=== PATIENT | female | born 1970 | race Caucasian/White ===

== ENCOUNTER 2019-08-28 12:48 | Outpatient (CLI) | payer OTHER, SELFPAY ==
[2019-08-28 13:40] LABS: Base Excess ABG 0.6 mEq/l (+/-2.0); Fractional Inspired Oxygen 21 %; HCO3 ABG 26.2 mEq/l (22.0-26.0); Methemoglobin ABG 0.3 %THb (0-1.5); Oxygen Content ABG 13.1 %vol (16.0-22.0); Oxygen Saturation ABG 91.4 % (95.0-100.0); Oxyhemoglobin 88.3 % THb (90.0-100.0); PCO2 ABG 46.4 mmHg (35.0-45.0); PO2 ABG 63.2 mmHg (80.0-100.0); PO2 FiO2 Ratio Arterial Blood 3.01 %; Reduced Hemoglobin 9.4 %THb (0-5.0); Total Hemoglobin 10.5 g/dL (12.0-18.0)
[2019-08-28 13:41] LABS: Device ROOM AIR; Modified Allen's Test Pass; Site Drawn LEFT BRACHIAL
[2019-08-28 14:55] LABS: Basophils Percent Auto 0.6 % (0.2-1.2); Eosinophils Absolute Auto 0.1 K/mm3 (0-0.3); Eosinophils Percent Auto 1.3 % (0-4.4); Hematocrit 30.2 % (37.0-47.0); Hemoglobin 9.5 g/dL (12.0-15.0); Immature Granulocyte Absolute 0.02 K/mm3 (0.00-0.031); Immature Granulocyte Percent A 0.3 % (0-0.5); Lymphocytes Absolute Auto 2.84 K/mm3 (0.9-3.2); Lymphocytes Percent Auto 40.6 % (18.3-44.2); Mean Corpuscular HGB Conc 31.5 g/dl (32-36); Mean Corpuscular Hemoglobin 28.6 pg (26-34); Mean Platelet Volume 8.2 fl (7.4-10.4); Monocytes Absolute Auto 0.7 K/mm3 (0.1-0.6); Monocytes Percent Auto 10.3 % (2.6-8.5); Neutrophils Absolute Auto 3.3 K/mm3 (1.3-6.7); Neutrophils Percent Auto 46.9 % (45.5-73.1); Platelet Count Result 371 k/mm3 (150-375); Red Blood Count 3.32 M/mm3 (4.2-5.4)
[2019-08-28 15:03] LABS: Alanine Aminotransferase 17 U/L (4-35); Albumin Level 4.2 g/dL (3.5-5.1); Alkaline Phosphatase 77 U/L (38-126); Aspartate Amino Transferase 26 U/L (14-36); Bilirubin,Total 0.2 mg/dL (0.2-1.3); Blood Urea Nitrogen 11 mg/dL (7-17); Calcium 8.7 mg/dL (8.4-10.2); Carbon Dioxide 28 mmol/L (22-30); Chloride 100 mmol/L (98-107); Cholesterol 148 mg/dL (0-200); Estimated Glomerular Filt Rate > 60; Glucose 96 mg/dL (65-105); HDL Direct 48 mg/dL; Potassium 3.8 mmol/L (3.4-5.0); Sodium 136 mmol/L (137-145); Triglycerides 171 mg/dL (<150)
[2019-08-28 15:04] LABS: Add Urine Microscopic? YES; Appearance Urine Cloudy (Clear); Bacteria Urine Trace /hpf; Bilirubin Urine Negative (Negative); Blood Urine 1+ (Negative); Color Urine Yellow (Yellow); Glucose Urine UA Negative (Negative); Ketones Urine Negative (Negative); Leukocyte Esterase Ur Negative LEU/UL (NEGATIVE); Mucus Urine Rare /lpf; Nitrate Urine Negative (Negative); Protein Urine Negative (Negative); RBC Urine 0-2 /hpf (0-2); Specific Grav Ur 1.009 (1.001-1.035); Squamous Epithelial Cell Urine Many /hpf (Few); Urobilinogen Urine Negative mg/dL (<2.0)
[2019-08-28 15:14] LABS: LDL Cholesterol Direct 80 mg/dL
--- NOTE | 2019-09-13 12:59 | WPDPFTINT ---
PFT Interpretation PFT Interpretation: DOS: 08/28/2019 REQUESTING: Kajal Hernandez MD REASON FOR TESTING: shortness of breath, right lung collapse, oxygen use PULMONARY FUNCTION TESTS Results appear to be reproducible. Spirometry: Normal FEV1 89% 2.28 L. normal FVC 98%. Decreased FEV 1% 69%. Low FEF 25-75, 41% predicted. After bronchodilator the small airways increased by 41%. Lung volumes: Total lung capacity normal 102%. Normal RV 105%. Increased airway resistance 207%. Diffusion: DLCO 40% extremely reduced. Flow volume loop: Mild scooping of the expiratory limb IMPRESSION: This test shows a small airways pattern with good response to bronchodilator, increased airway resistance and severe diffusion impairment. The small airways pattern can be seen in asthma. The decrease in diffusion is the most significant finding, and it is out of proportion to all other findings. Isolated decrease in DLCO can be seen in anemia, chronic recurrent pulmonary emboli, early interstitial lung disease, and pulmonary vascular diseases including pulmonary arterial hypertension, pulmonary vascular disease involving rheumatologic diseases and vasculitides. Clinical correlation is recommended. ARTERIAL BLOOD GAS: pH 7.37, pCO2 46.4 mildly elevated, PO2 63.2, HCO3 26.2, saturation 91.4%; hemoglobin 10.5 g/dL. carboxyhemoglobin 2.0, oxyhemoglobin 88.3%. This was drawn on room air from the left brachial artery. INTERPRETATION: Mild respiratory acidosis with metabolic compensation, mild hypoxemia. Zeenat Flores MD
--- NOTE | 2019-09-13 13:20 | WPDSIXMINUTE ---
Six Minute Walk Six Minute Walk: DOS: 08/28/2019 REQUESTING : Dr. Hernandez REASON FOR TESTING: Shortness of breath with exertion SIX MINUTE WALK This test was conducted per ATS standards. the patient perform the test on room air using her ownl wheeled walker. Initial saturation was 94% and heart rate was 78. The patient walked for 6 minutes without stopping. Saturation at the 3 minutes clare was 85% on room air. Saturation at the end of the test was 92% and the pulse was 71. Distance walked was 925 ft / 281 meters. IMPRESSION: This study shows desaturation to 85% which indicates that the patient may qualify for O2 with exertion. Recommend Home O2 evaluation to determine amount. Zeenat Flores MD
== END 2019-08-28 12:49 | disposition home or self-care (01) ==
PROVIDERS: PCP Student in an Organized Health Care Education/Training Program
DX: R06.02 Shortness of breath (principal); E87.2 Acidosis; R09.02 Hypoxemia
CPT/HCPCS: 36415; 36600; 80053; 80061; 81001; 82375; 82805; 83050; 85025; 94060; 94726; 94729

== ENCOUNTER 2020-02-14 17:44 | Outpatient (CLI) | payer OTHER, SELFPAY ==
--- NOTE | ~2020-02-14 | MM_ITS ---
EXAMINATION: MM screening vika BI w jonathan HISTORY: Screening mammogram, family history of breast cancer in her mother. TECHNIQUE: Craniocaudal and mediolateral oblique 3-D tomosynthesis images were obtained and synthetic 2-D images were generated. CAD analysis was submitted and interpreted. COMPARISON: None, baseline BREAST PARENCHYMAL COMPOSITION: The breasts are heterogeneously dense, which may obscure small masses . FINDINGS: RIGHT BREAST: There is no evidence of suspicious mass, calcification, or architectural distortion to suggest malignancy. LEFT BREAST: An asymmetry is present in the anterior third of the inner breast 3.5 cm from the nipple on the craniocaudal view. IMPRESSION: 1. Left breast asymmetry on the craniocaudal view. 2. Additional mammographic views and possible breast ultrasound are recommended to evaluate for malig lexi and establish a baseline given that this is the first mammographic examination. BI-RADS Category 0: Incomplete: Needs additional imaging evaluation. Reviewed, dictated and finalized at location A. IMPRESSION: 1. Left breast asymmetry on the craniocaudal view. 2. Additional mammographic views and possible breast ultrasound are recommended to evaluate for malignancy and establish a baseline given that this is the fir st mammographic examination. BI-RADS Category 0: Incomplete: Needs additional imaging evaluation.
== END 2020-02-14 17:45 | disposition home or self-care (01) ==
PROVIDERS: PCP Student in an Organized Health Care Education/Training Program; Visit Provider Student in an Organized Health Care Education/Training Program
DX: Z12.31 Encounter for screening mammogram for malignant neoplasm of breast (principal); R92.8 Other abnormal and inconclusive findings on diagnostic imaging of breast
CPT/HCPCS: 77063; 77067

== ENCOUNTER 2022-03-09 10:24 | Inpatient (IN) | payer MEDICARE, MEDICAID, SELFPAY ==
[2022-03-09] VITALS (18 sets, daily range): BP systolic 96–122; BP diastolic 49–69; PULSE 71–87; RESP 14–20; TEMP 36.1–36.3; O2SAT 89–100; BMI 36.6
--- NOTE | ~2022-03-09 | XR_ITS ---
XR chest 1V portable 03/09/2022 11:16 Indication: Shortness of breath Procedure: AP portable chest Comparison: 04/26/2028 Findings: As right upper lobe airspace disease, compatible with pneumonia. There is left basilar atel ectasis/scarring, unchanged. Heart size normal. No pleural effusion or pneumothorax. No acute osseous abnormality. Impression: 1: Right upper lobe airspace disease, compatible with pneumonia. Reviewed, dictated and finalized at location A. Impression: 1: Right upper lobe airspace disease, compatible with pneumonia.
--- NOTE | ~2022-03-09 | XR_ITS ---
XR chest 1V portable 03/11/2022 14:04 Indication: Shortness of breath. Chest pressure. Procedure: AP portable chest Comparison: 03/09/2022 Findings: Patchy bilateral airspace disease is present with improving right upper lobe airspace conso lidation. No pleural effusion or pneumothorax. Heart size normal. No acute osseous abnormality. Impression: 1: Improving patchy bilateral airspace disease, consistent with pneumonia. Reviewed, dictated and finalized at location A. Impression: 1: Improving patchy bilateral airspace disease, consistent with pneumonia.
--- NOTE | 2022-03-09 10:39 | ECG_ITS ---
Measurements Intervals [place] Rate: 82 P: 44 W[place]: 151 QRS: 35 QRSD: 100 T: 55 QT: 365 QTc: 427 Interpretive Statements SINUS RHYTHM NONSPECIFIC T-WAVE ABNORMALITY- ANTERIOR LEADS BORDERLINE ECG COMPARED TO ECG 10/14/2018 23:20:51 HEART RATE HAS INCREASED Electronically Signed On 03-09-2022 12:18:52 CDT by Julius Willis D.O.
[2022-03-09 10:53] LABS: Basophils Percent Auto 0.2 % (0.2-1.2); Eosinophils Absolute Auto 0.1 K/mm3 (0-0.3); Eosinophils Percent Auto 0.6 % (0-4.4); Hematocrit 33.7 % (37.0-47.0); Hemoglobin 10.7 g/dL (12.0-15.0); Immature Granulocyte Absolute 0.03 K/mm3 (0.00-0.031); Immature Granulocyte Percent A 0.4 % (0-0.5); Lymphocytes Absolute Auto 1.18 K/mm3 (0.9-3.2); Mean Corpuscular HGB Conc 31.8 g/dl (32-36); Mean Corpuscular Hemoglobin 28.2 pg (26-34); Mean Corpuscular Volume 88.9 fl (80-100); Mean Platelet Volume 8.5 fl (7.4-10.4); Monocytes Absolute Auto 0.6 K/mm3 (0.1-0.6); Monocytes Percent Auto 7.3 % (2.6-8.5); Neutrophils Absolute Auto 6.6 K/mm3 (1.3-6.7); Neutrophils Percent Auto 77.5 % (45.5-73.1); Platelet Count Result 336 k/mm3 (150-375); Red Blood Count 3.79 M/mm3 (4.2-5.4); Red Cell Distribution Width 14.9 % (11.5-14.5); White Blood Count 8.5 K/mm3 (4.5-10.0)
[2022-03-09 11:04] LABS: Prothrombin Time 12.9 Seconds (11.1-14.7)
[2022-03-09 11:10] LABS: Alanine Aminotransferase 29 U/L (6-35); Albumin Level 4.2 g/dL (3.5-5.1); Alkaline Phosphatase 101 U/L (38-126); Anion Gap 12 mmol/L (8-16); Aspartate Amino Transferase 34 U/L (14-36); Bilirubin,Total 0.4 mg/dL (0.2-1.3); Blood Urea Nitrogen 11 mg/dL (7-17); Carbon Dioxide 25 mmol/L (22-30); Chloride 102 mmol/L (98-107); Estimated CRCL calculation 95 ml/min; Estimated Glomerular Filt Rate > 60; Glucose 137 mg/dL (65-110); Sodium 139 mmol/L (137-145)
--- NOTE | 2022-03-09 11:55 | ED.SOB ---
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 Patient denies any nausea, vomiting, diarrhea, constipation or back pain. Patient's daughter had COVID 1 week ago, patient is fully vaccinated for COVID, did not get the booster dose yet, history of hypertension, hyperlipidemia, COPD, hypothyroidism, coronary stents. Currently patient on Xarelto and Plavix. Normally she is not on oxygen. Related Data Allergies Allergy/AdvReac Type Severity Reaction Status Date / Time No Known Allergies Allergy Unverified 04/26/18 14:45 Review of Systems Review of Systems: All systems reviewed & are unremarkable except as noted in HPI and below Exam Narrative: General appearance: Well-developed, well-nourished Skin: Normal color Head: Normocephalic, nontraumatic Eyes: Clear conjunctiva ENT: Oropharynx normal, ears normal, nose normal Neck: Supple, nontender Chest and respiratory: Airway patent, no respiratory distress, no accessory muscle use Heart: Regular rate/rhythm Abdomen: Soft, nontender, no organomegaly, quiet bowel sounds Vascular: Normal peripheral pulses, normal capillary refill. Musculoskeletal: Normal range of motion, nontender back Neurologic: Alert and oriented ?3, HO[place] is normal as tested, no gross motor deficit Course Vital Signs Vital signs: Vital Signs Temperature 36.3 C L 03/09/22 10:33 Pulse Rate 84 03/09/22 10:33 Respiratory Rate 14 03/09/22 10:33 Blood Pressure 122/69 03/09/22 10:33 Pulse Oximetry 95 03/09/22 10:33 Temperature 36.3 C L 03/09/22 10:33 Pulse Rate 75 03/09/22 12:38 Respiratory Rate 18 03/09/22 12:38 Blood Pressure 105/59 L 03/09/22 12:38 Pulse Oximetry 98 03/09/22 12:38 Oxygen Delivery Nasal Cannula 03/09/22 11:42 Oxygen Flow Rate 2 03/09/22 11:42 MDM - SOB/Dyspnea Lab Data Result diagrams: 03/09/22 10:48 03/09/22 10:48 Labs: Lab Results 03/09/22 03/09/22 03/09/22 Range/Units 10:48 10:48 10:48 WBC 8.5 (4.5-10.0) K/mm3 RBC 3.79 L (4.2-5.4) M/mm3 Hgb 10.7 L (12.0-15.0) g/dL Hct 33.7 L (37.0-47.0) % MCV 88.9 (80-100) fl MCH 28.2 (26-34) pg MCHC 31.8 L (32-36) g/dl RDW 14.9 H (11.5-14.5) % Plt Count 336 (150-375) k/mm3 MPV 8.5 (7.4-10.4) fl Immature Gran % (Auto) 0.4 (0-0.5) % Neut % (Auto) 77.5 H (45.5-73.1) % Lymph % (Auto) 14.0 L (18.3-44.2) % [place] % (Auto) 7.3 (2.6-8.5) % Eos % (Auto) 0.6 (0-4.4) % Baso % (Auto) 0.2 (0.2-1.2) % Lymph # (Auto) 1.18 (0.9-3.2) K/mm3 [place] # (Auto) 0.6 (0.1-0.6) K/mm3 Eos # (Auto) 0.1 (0-0.3) K/mm3 Baso # (Auto) 0.0 (0.0-0.1) K/mm3 Abs Immat Gran (auto) 0.03 (0.00-0.031) K/mm3 Absolute Neuts (auto) 6.6 (1.3-6.7) K/mm3 Absolute Nucleated RBC 0.0 (0.0-0.012) K/mm3 Nucleated RBC % 0.0 (0.0-0.2) % PT 12.9 (11.1-14.7) Seconds INR 1.0 APTT D-Dimer (<0.48) ug/mL Sodium 139 (137-145) mmol/L Potassium 4.0 (3.4-5.0) mmol/L Chloride 102 (98-107) mmol/L Carbon Dioxide 25 (22-30) mmol/L Anion Gap 12 (8-16) mmol/L BUN 11 (7-17) mg/dL Creatinine 0.70 (0.7-1.0) mg/dL Estim Creat Clear Calc 95 ml/min Estimated GFR > 60 (59 - ) Glucose 137 H (65
[2022-03-09 12:27] LABS: Alveolar/Arterial O2 Gradient 59.6 mmHg; Base Excess ABG 1.8 mEq/l (+/-2.0); Device NASAL CANNULA; Fractional Inspired Oxygen 28 %; HCO3 ABG 26.8 mEq/l (22.0-26.0); Modified Allen's Test Pass; Oxygen Content ABG 15.1 %vol (16.0-22.0); Oxygen Saturation ABG 96.7 % (95.0-100.0); Oxyhemoglobin 95.3 % THb (90.0-100.0); PCO2 ABG 43.9 mmHg (35.0-45.0); PO2 ABG 88.2 mmHg (80.0-100.0); PO2 FiO2 Ratio Arterial Blood 3.15 %; Site Drawn LEFT RADIAL; Total Hemoglobin 11.2 g/dL (12.0-18.0); pH ABG 7.404 (7.350-7.450)
[2022-03-09 13:06] LABS: SARS-CoV-2 RNA PCR Negative
[2022-03-09 13:20] LABS: Lactic Acid Reflex 1.8 mmol/L (0.7-2.0)
[2022-03-09 13:22] LABS: D Dimer < 0.27 ug/mL (<0.48)
[2022-03-09 13:27] LABS: CRP 1.9 mg/dL (<1.0)
[2022-03-09 13:41] LABS: Partial Thromboplastin Time 27.7 SECONDS (22.3-36.8)
[2022-03-09] MEDS: ALBUTEROL SULFATE NEB 2.5 MG/3 ML INH 5 MG INHALATION ×2 (14:50→20:28)
[2022-03-09 14:55] LABS: INR 1.1; Prothrombin Time 13.3 Seconds (11.1-14.7)
--- NOTE | 2022-03-09 22:00 | PM.IMHP ---
H&P: HPI History of Present Illness Date/Time: 03/09/22 22:00 Chief Complaint: Shortness of breath. Narrative: This is a 51-year-old female with chronic respiratory failure on home oxygen, chronic obstructive pulmonary disease, coronary artery disease, chronic anticoagulation due to history of pulmonary embolism, and hypertension who presented to the ED from home for evaluation of shortness of breath. She felt fine when she went to bed last night however when she got up this morning she was feeling unwell with sinus congestion, chills, sweats, dry cough, and sinus congestion. Her daughter had COVID last week and she was concerned that perhaps she was coming down with COVID and she came in for evaluation. SARS-CoV-2 by PCR was negative. Chest x-ray showed right upper lobe airspace disease compatible with pneumonia and she is being admitted in this setting. At the time my evaluation she is asleep with stable SpO2 on her usual 2 liters nasal cannula. She denies headache, sore throat, chest pain, pleuritic pain, nausea, vomiting, and diarrhea. Review of Systems Review of Systems: Twelve systems were reviewed and are negative except for as per HPI. ON LICENSE OF [facility] Past Medical History Medical History (Updated 03/09/22 @ 23:16 by Elena Figueredo PA-C) Chronic back pain Chronic obstructive pulmonary disease Chronic prescription opiate use Chronic respiratory failure with hypoxia, on home O2 therapy Coronary artery disease Depression with anxiety Gastroesophageal reflux disease Hypertension Hypothyroidism Surgical History Surgical History (Updated 03/09/22 @ 23:10 by Elena Figueredo PA-C) History of cardiac catheterization History of coronary artery stent placement History of lumbar surgery Family History Family History (Updated 03/09/22 @ 23:10 by Elena Figueredo PA-C) Other Heart disease Hypertension Social History Social History (Updated 03/09/22 @ 23:11 by Elena Figueredo PA-C) Social History: Surrogate medical decision maker: Spenser Carrera, significant other. Code status: Full code. Smoking packs per day: 3.5 Smoking cigarettes per day: 70.0 Years smoked: 20 Smoking pack-years: 70.00 Smoking status: Former smoker Tobacco type: cigarettes Second hand tobacco smoke exposure: No Alcohol intake: former Substance use: never Spiritual care concerns: No Meds Home Medications and Allergies Home Medications Medication Instructions Recorded Confirmed Type amlodipine 2.5 mg tablet 25 mg PO DAILY 03/09/22 03/09/22 History atorvastatin 80 mg tablet 80 mg PO DAILY 03/09/22 03/09/22 History buspirone 15 mg tablet 15 mg PO BID 03/09/22 03/09/22 History clopidogrel 75 mg tablet 75 mg PO HS 03/09/22 03/09/22 History diazepam 5 mg tablet 5 - 10 mg PO DAILY PRN Anxiety 03/09/22 03/09/22 History famotidine 20 mg tablet 20 mg PO BID 03/09/22 03/09/22 History furosemide 20 mg tablet 20 mg PO DAILY PRN Dyspnea 03/09/22 03/09/22 History gabapentin 300 mg capsule 300 mg PO TID 03/09/22 03/09/22 History isosorbide mononitrate 30 mg 30 mg PO DAILY 03/09/22 03/09/22 History tablet,extended release 24 hr levothyroxine 25 mcg tablet 25 mcg PO QAM 03/09/22 03/09/22 History metoprolol tartrate 25 mg tablet 25 mg PO Q12H 03/09/22 03/09/22 History montelukast 10 mg tablet 10 mg PO DAILY 03/09/22 03/09/22 History nitroglycerin 0.3 mg sublingual See Rx Instructions .Route 03/09/22 03/09/22 History tablet .COMPLEX PRN Angina oxycodone-acetaminophen 10 mg-325 1 tablet PO Q6H PRN Pain 03/09/22 03/09/22 History mg tablet pantoprazole 40 mg tablet,delayed 40 mg PO DAILY 03/09/22 03/09/22 History release rivaroxaban 20 mg tablet (Xarelto) 20 mg PO HS 03/09/22 03/09/22 History venlafaxine 150 mg 150 mg PO DAILY 03/09/22 03/09/22 History capsule,extended release 24 hr venlafaxine 75 mg capsule,extended 75 mg PO DAILY 03/09/22 03/09/22 History release 24 hr Allergies Allergy/AdvReac Type Se
[2022-03-09] MEDS: SODIUM CHLORIDE 0.9% IV 1,000 ML 100 ML IV CONT (23:49)
[2022-03-09] MEDS: oxyCODONE/ACETAMINOPHEN (*CRX) 10-325 MG TABLET 1 TAB PO (23:49)
[2022-03-10] VITALS (13 sets, daily range): BP systolic 102–125; BP diastolic 52–75; PULSE 77–100; RESP 16–20; TEMP 35.8–36.6; O2SAT 91–97
[2022-03-10] MEDS: GABAPENTIN 300 MG CAPSULE PO ×4 (00:19→16:08)
[2022-03-10] MEDS: RIVAROXABAN 20 MG TABLET PO ×2 (00:20→21:20)
[2022-03-10] MEDS: METOPROLOL TARTRATE 25 MG TABLET PO ×3 (00:20→21:20)
[2022-03-10] MEDS: CLOPIDOGREL BISULFATE 75 MG TABLET PO ×2 (00:20→21:19)
--- NOTE | 2022-03-10 02:18 | PCRCNOTE ---
PT REFUSING 0200 UPD ON 03/10. PT INFORMED TO CALL IF IN NEED OF ONE. RN INFORMED OF REFUSAL.
[2022-03-10] MEDS: LEVOTHYROXINE SODIUM 25 MCG TABLET PO (06:03)
[2022-03-10] MEDS: oxyCODONE/ACETAMINOPHEN (*CRX) 10-325 MG TABLET 1 TAB PO ×3 (06:03→17:45)
[2022-03-10 06:50] LABS: Hematocrit 29.5 % (37.0-47.0); Hemoglobin 9.1 g/dL (12.0-15.0); Mean Corpuscular HGB Conc 30.8 g/dl (32-36); Mean Corpuscular Hemoglobin 27.9 pg (26-34); Mean Corpuscular Volume 90.5 fl (80-100); Mean Platelet Volume 8.8 fl (7.4-10.4); Platelet Count Result 304 k/mm3 (150-375); Red Blood Count 3.26 M/mm3 (4.2-5.4); Red Cell Distribution Width 15.2 % (11.5-14.5); White Blood Count 6.4 K/mm3 (4.5-10.0)
[2022-03-10 07:11] LABS: Alanine Aminotransferase 25 U/L (6-35); Albumin Level 3.6 g/dL (3.5-5.1); Alkaline Phosphatase 88 U/L (38-126); Anion Gap 9 mmol/L (8-16); Aspartate Amino Transferase 27 U/L (14-36); Bilirubin,Total 0.4 mg/dL (0.2-1.3); Blood Urea Nitrogen 11 mg/dL (7-17); Calcium 8.6 mg/dL (8.4-10.2); Carbon Dioxide 28 mmol/L (22-30); Chloride 101 mmol/L (98-107); Estimated CRCL calculation 94 ml/min; Estimated Glomerular Filt Rate > 60; Glucose 121 mg/dL (65-110); Lactate Dehydrogenase 152 U/L (120-246); Magnesium 1.8 mg/dL (1.6-2.3); Potassium 4.1 mmol/L (3.4-5.0); Sodium 138 mmol/L (137-145)
[2022-03-10 07:17] LABS: CRP 12.5 mg/dL (<1.0)
[2022-03-10] MEDS: ALBUTEROL SULFATE NEB 2.5 MG/3 ML INH 5 MG INHALATION ×2 (08:15→15:15)
[2022-03-10] MEDS: MONTELUKAST SODIUM 10 MG TABLET PO (08:55)
[2022-03-10] MEDS: VENLAFAXINE HCL XR 75 MG CAP.ER.24H 225 MG PO (08:55)
[2022-03-10] MEDS: FUROSEMIDE 20 MG TABLET PO (08:56)
[2022-03-10] MEDS: FAMOTIDINE 20 MG TABLET PO ×2 (08:56→16:08)
[2022-03-10] MEDS: PANTOPRAZOLE 40 MG TABLET PO (08:56)
[2022-03-10] MEDS: ATORVASTATIN 40 MG TABLET 80 MG PO (08:56)
[2022-03-10] MEDS: busPIRone HCL 5 MG TABLET 15 MG PO ×2 (08:57→16:08)
[2022-03-10] MEDS: ACETAMINOPHEN 325 MG TABLET 650 MG PO (11:12)
--- NOTE | 2022-03-10 11:15 | PM.IMPN ---
Progress Note: A&P Assessment and Plan (1) Right upper lobe pneumonia: Code(s): J18.9 - Pneumonia, unspecified organism Status: Acute Assessment and Plan: Chest xray Right upper lobe airspace disease, compatible with pneumonia. Covid negative WBC 6.4 Continue ceftriaxone and azithromycin Sputum ordered Legionella and pneumococcal ordered Trend symptoms At baseline O2 requirements (2) Chronic respiratory failure with hypoxia, on home O2 therapy: Code(s): J96.11 - Chronic respiratory failure with hypoxia; Z99.81 - Dependence on supplemental oxygen Status: Acute Assessment and Plan: She is at her home oxygen requirement. Trend respiratory status Wean oxygen to maintain saturation >90% . (3) Chronic obstructive pulmonary disease: Code(s): J44.9 - Chronic obstructive pulmonary disease, unspecified Status: Acute Assessment and Plan: No acute exacerbation. Nebs available if needed. (4) Chronic prescription opiate use: Code(s): Z79.891 - group home (current) use of opiate analgesic Status: Acute Assessment and Plan: Continue oxycodone q.6 hours as needed for pain. (5) Hypothyroidism: Code(s): E03.9 - Hypothyroidism, unspecified Status: Acute Assessment and Plan: Continue levothyroxine TSH 1.210 (6) Coronary artery disease: Code(s): I25.10 - Atherosclerotic heart disease of [place] coronary artery without angina pectoris Status: Acute Assessment and Plan: No acute issues. Continue clopidogrel, statin, and beta-placido. (7) Hypertension: Code(s): I10 - Essential (primary) hypertension Status: Acute Assessment and Plan: Current BP is 102/61 Blood pressures have been soft. Continue to hold Amlodipine and isosorbide for now. Continue to trend BP Adjust therapy as indicated Time Spent With Patient Time with patient: Greater than 35 minutes Subjective Date/time seen: 03/10/22 11:15 Interval history: 03/10/22 1115 Patient stated that she was having a little bit chest pain however it is mostly when she coughs, takes a deep breath. She also states that she has bilateral pain on the sides were her chest tubes were inserted when she had collapsed lung. She is also complaining of back pain which she does have for rods in her back and states that is probably normal. Her swelling in her legs and she does have a cough however is not productive. She does have a bit of a fever and states that she is having night sweats. She currently seems to be at her baseline. She denies any nausea, vomiting, diarrhea, constipation. 03/09/22? 22:00 This is a 51-year-old female with chronic respiratory failure on home oxygen, chronic obstructive pulmonary disease, coronary artery disease, chronic anticoagulation due to history of pulmonary embolism, and hypertension who presented to the ED from home for evaluation of shortness of breath. She felt fine when she went to bed last night however when she got up this morning she was feeling unwell with sinus congestion, chills, sweats, dry cough, and sinus congestion. Her daughter had COVID last week and she was concerned that perhaps she was coming down with COVID and she came in for evaluation. SARS-CoV-2 by PCR was negative. Chest x-ray showed right upper lobe airspace disease compatible with pneumonia and she is being admitted in this setting. At the time my evaluation she is asleep with stable SpO2 on her usual 2 liters nasal cannula. She denies headache, sore throat, chest pain, pleuritic pain, nausea, vomiting, and diarrhea. Review of Systems Review of Systems: All systems reviewed & are unremarkable except as noted in HPI and below Exam Const: General: cooperative, healthy appearing, no acute distress, well developed, alert and awake Nutritional Appearance: well nourished Orientation/
[2022-03-10] MEDS: FUROSEMIDE INJ 40 MG/4 ML VIAL IV PUSH (16:08)
--- NOTE | 2022-03-10 17:17 | PC.NURSE ---
Called Josue MILLER regarding +gram cocci in clusters, no new orders
[2022-03-10] MEDS: MORPHINE SULFATE (*CRX) 2 MG/ML INJ IV PUSH (22:12)
[2022-03-10] MEDS: diazePAM (*CRX) 5 MG TABLET PO (22:24)
[2022-03-11] MEDS: diphenhydrAMINE HCl CAP 25 MG CAPSULE PO (01:09)
[2022-03-11] MEDS: oxyCODONE/ACETAMINOPHEN (*CRX) 10-325 MG TABLET 1 TAB PO ×3 (01:09→15:48)
[2022-03-11 05:27] VITALS: BP 111/60; PULSE 76; RESP 20; TEMP 37.3; O2SAT 90
[2022-03-11] MEDS: LEVOTHYROXINE SODIUM 25 MCG TABLET PO (05:55)
[2022-03-11 08:00] VITALS: O2SAT 95
[2022-03-11] MEDS: VENLAFAXINE HCL XR 75 MG CAP.ER.24H 225 MG PO (08:47)
[2022-03-11 08:48] VITALS: PULSE 76
[2022-03-11] MEDS: PANTOPRAZOLE 40 MG TABLET PO (08:48)
[2022-03-11] MEDS: METOPROLOL TARTRATE 25 MG TABLET PO (08:48)
[2022-03-11] MEDS: FAMOTIDINE 20 MG TABLET PO (08:48)
[2022-03-11] MEDS: busPIRone HCL 5 MG TABLET 15 MG PO (08:48)
[2022-03-11] MEDS: GABAPENTIN 300 MG CAPSULE PO ×2 (08:48→12:42)
[2022-03-11] MEDS: ATORVASTATIN 40 MG TABLET 80 MG PO (08:49)
[2022-03-11] MEDS: MONTELUKAST SODIUM 10 MG TABLET PO (08:49)
[2022-03-11 09:17] LABS: Basophils Percent Auto 0.5 % (0.2-1.2); Eosinophils Absolute Auto 0.2 K/mm3 (0-0.3); Eosinophils Percent Auto 3.2 % (0-4.4); Hematocrit 34.7 % (37.0-47.0); Hemoglobin 10.6 g/dL (12.0-15.0); Immature Granulocyte Absolute 0.02 K/mm3 (0.00-0.031); Immature Granulocyte Percent A 0.4 % (0-0.5); Lymphocytes Absolute Auto 1.79 K/mm3 (0.9-3.2); Lymphocytes Percent Auto 31.6 % (18.3-44.2); Mean Corpuscular HGB Conc 30.5 g/dl (32-36); Mean Corpuscular Hemoglobin 28.8 pg (26-34); Mean Corpuscular Volume 94.3 fl (80-100); Mean Platelet Volume 8.6 fl (7.4-10.4); Monocytes Absolute Auto 0.6 K/mm3 (0.1-0.6); Monocytes Percent Auto 10.6 % (2.6-8.5); Neutrophils Absolute Auto 3.1 K/mm3 (1.3-6.7); Neutrophils Percent Auto 53.7 % (45.5-73.1); Platelet Count Result 330 k/mm3 (150-375); Red Blood Count 3.68 M/mm3 (4.2-5.4); Red Cell Distribution Width 15.2 % (11.5-14.5); White Blood Count 5.7 K/mm3 (4.5-10.0)
[2022-03-11 09:27] LABS: Alanine Aminotransferase 25 U/L (6-35); Albumin Level 4.2 g/dL (3.5-5.1); Alkaline Phosphatase 101 U/L (38-126); Anion Gap 11 mmol/L (8-16); Aspartate Amino Transferase 25 U/L (14-36); Bilirubin,Total 0.4 mg/dL (0.2-1.3); Blood Urea Nitrogen 9 mg/dL (7-17); Carbon Dioxide 27 mmol/L (22-30); Chloride 100 mmol/L (98-107); Estimated CRCL calculation 109 ml/min; Estimated Glomerular Filt Rate > 60; Glucose 125 mg/dL (65-110); Potassium 4.1 mmol/L (3.4-5.0); Sodium 138 mmol/L (137-145)
--- NOTE | 2022-03-11 09:30 | P.DS_ITS ---
DS: Admitting Diagnosis Discharge Date 03/11/22929 Admitting Diagnosis PNA, CHF, COPD DS: Discharge Diagnosis Discharge Diagnosis (1) Right upper lobe pneumonia: Code(s): J18.9 - Pneumonia, unspecified organism Status: Acute Assessment and Plan: * Chest xray Right upper lobe airspace disease, compatible with pneumonia. * Covid negative * WBC 6.4 * Continue ceftriaxone and azithromycin * Sputum ordered * Legionella and pneumococcal ordered * Trend symptoms * At baseline O2 requirements (2) Chronic respiratory failure with hypoxia, on home O2 therapy: Code(s): J96.11 - Chronic respiratory failure with hypoxia; Z99.81 - Dependence on supplemental oxygen Status: Acute Assessment and Plan: * She is at her home oxygen requirement. * Trend respiratory status * Wean oxygen to maintain saturation >90% (3) Chronic obstructive pulmonary disease: Code(s): J44.9 - Chronic obstructive pulmonary disease, unspecified Status: Acute Assessment and Plan: * No acute exacerbation. Nebs available if needed. (4) Chronic prescription opiate use: Code(s): Z79.891 - [facility] (current) use of opiate analgesic Status: Acute Assessment and Plan: * Continue oxycodone q.6 hours as needed for pain. (5) Hypothyroidism: Code(s): E03.9 - Hypothyroidism, unspecified Status: Acute Assessment and Plan: * Continue levothyroxine * TSH 1.210 (6) Coronary artery disease: Code(s): I25.10 - Atherosclerotic heart disease of [place] coronary artery without angina pectoris Status: Acute Assessment and Plan: * * No acute issues. Continue clopidogrel, statin, and beta-placido. (7) Hypertension: Code(s): I10 - Essential (primary) hypertension Status: Acute Assessment and Plan: * Current BP is 111/60 * Blood pressures have been soft. * Continue to hold Amlodipine and isosorbide for now. * Continue to trend BP * Adjust therapy as indicated DS: Summary Hospital Course Hospital Course: Patient is a 51-year-old female with past medical history of COPD, chronic respiratory failure on home O2, CAD, GERD, hypertension, hypothyroidism who presented to the ED with complaints of shortness of breath. Patient started to have congestion along with chills and sweats with dry cough. COVID test was negative chest x-ray showed right upper lobe airspace disease compatible with pneumonia. White blood cell count is stable at 5.7 today. Sputum culture did grow Gram-positive cocci however no growth any further. Legionella pneumococcal are still pending. Patient was started on IV antibiotics including ceftriaxone and azithromycin. Patient is also being and p.r.n. Lasix which he states has really been helping her breathe better and makes her feel better in general. She is currently stable for discharge including labs and vital signs. Blood cultures did show Gram-positive cocci in clusters growing in 1 bottle. However patient does not paint the picture of bacteremia and seems to have more of a contaminant. Will continue to follow culture results. Patient is stable for discharge and is ready to go today. Time spent discussing smoking cessation with patient: more than 10 minutes Status at Discharge Functional status at discharge: independent ambulation Overall status at discharge: shey
--- NOTE | 2022-03-11 09:30 | PM.DS ---
DS: Admitting Diagnosis Discharge Date 03/11/22929 Admitting Diagnosis PNA, CHF, COPD DS: Discharge Diagnosis Discharge Diagnosis (1) Right upper lobe pneumonia: Code(s): J18.9 - Pneumonia, unspecified organism Status: Acute Assessment and Plan: Chest xray Right upper lobe airspace disease, compatible with pneumonia. Covid negative WBC 6.4 Continue ceftriaxone and azithromycin Sputum ordered Legionella and pneumococcal ordered Trend symptoms At baseline O2 requirements (2) Chronic respiratory failure with hypoxia, on home O2 therapy: Code(s): J96.11 - Chronic respiratory failure with hypoxia; Z99.81 - Dependence on supplemental oxygen Status: Acute Assessment and Plan: She is at her home oxygen requirement. Trend respiratory status Wean oxygen to maintain saturation >90% (3) Chronic obstructive pulmonary disease: Code(s): J44.9 - Chronic obstructive pulmonary disease, unspecified Status: Acute Assessment and Plan: No acute exacerbation. Nebs available if needed. (4) Chronic prescription opiate use: Code(s): Z79.891 - long-term (current) use of opiate analgesic Status: Acute Assessment and Plan: Continue oxycodone q.6 hours as needed for pain. (5) Hypothyroidism: Code(s): E03.9 - Hypothyroidism, unspecified Status: Acute Assessment and Plan: Continue levothyroxine TSH 1.210 (6) Coronary artery disease: Code(s): I25.10 - Atherosclerotic heart disease of [place] coronary artery without angina pectoris Status: Acute Assessment and Plan: No acute issues. Continue clopidogrel, statin, and beta-placido. (7) Hypertension: Code(s): I10 - Essential (primary) hypertension Status: Acute Assessment and Plan: Current BP is 111/60 Blood pressures have been soft. Continue to hold Amlodipine and isosorbide for now. Continue to trend BP Adjust therapy as indicated DS: Summary Hospital Course Hospital Course: Patient is a 51-year-old female with past medical history of COPD, chronic respiratory failure on home O2, CAD, GERD, hypertension, hypothyroidism who presented to the ED with complaints of shortness of breath. Patient started to have congestion along with chills and sweats with dry cough. COVID test was negative chest x-ray showed right upper lobe airspace disease compatible with pneumonia. White blood cell count is stable at 5.7 today. Sputum culture did grow Gram-positive cocci however no growth any further. Legionella pneumococcal are still pending. Patient was started on IV antibiotics including ceftriaxone and azithromycin. Patient is also being and p.r.n. Lasix which he states has really been helping her breathe better and makes her feel better in general. She is currently stable for discharge including labs and vital signs. Blood cultures did show Gram-positive cocci in clusters growing in 1 bottle. However patient does not paint the picture of bacteremia and seems to have more of a contaminant. Will continue to follow culture results. Patient is stable for discharge and is ready to go today. Time spent discussing smoking cessation with patient: more than 10 minutes Status at Discharge Functional status at discharge: independent ambulation Overall status at discharge: patient is progressing back to baseline Time Spent with Patient Time attestation: Total time spent providing and/or coordinating discharge services: 36 minutes Time spent: Greater than 30 minutes Specific discharge activities: Diagnostic testing, chart review, developing a treatment plan, education, care coordination documentation, physical exam, result review Exam Const: General: cooperative, healthy appearing, no acute distress, well developed, alert and awake Nutritional Appearance: well nourished Orientation/con
[2022-03-11] MEDS: FUROSEMIDE INJ 40 MG/4 ML VIAL IV PUSH (11:42)
[2022-03-11 14:00] VITALS: BP 116/65; PULSE 79; RESP 16; TEMP 35.9; O2SAT 97
[2022-03-13 00:32] LABS: Pneumococcal Antigen Urine Not Detected (Not Detected)
[2022-03-13 03:10] LABS: Legionella pneumophila Ag Ur Not Detected (Not Detected)
[2022-03-15 14:28] LABS: Mycoplasma IgM Antibody Titer 52 U/mL (<770)
== END 2022-03-11 17:00 | disposition home or self-care (01) | DRG 194 ==
LOC: ANHED 13:31 → ANH3MEDSUR 14:30
PROVIDERS: Physician Assistant; Admitting Provider Family Medicine; Emergency Provider Emergency Medicine; PCP Student in an Organized Health Care Education/Training Program; Visit Provider Nurse Practitioner
DX: J18.9 Pneumonia, unspecified organism (principal); J96.11 Chronic respiratory failure with hypoxia; B96.89 Other specified bacterial agents as the cause of diseases classified elsewhere; Z20.822 Contact with and (suspected) exposure to COVID-19; E03.9 Hypothyroidism, unspecified; F32.A Depression, unspecified; F41.9 Anxiety disorder, unspecified; I25.10 Atherosclerotic heart disease of native coronary artery without angina pectoris; I10 Essential (primary) hypertension; K21.9 Gastro-esophageal reflux disease without esophagitis; J44.9 Chronic obstructive pulmonary disease, unspecified; G89.29 Other chronic pain; M54.9 Dorsalgia, unspecified; Z99.81 Dependence on supplemental oxygen; Z79.01 Long term (current) use of anticoagulants; Z79.02 Long term (current) use of antithrombotics/antiplatelets; Z86.711 Personal history of pulmonary embolism; Z95.5 Presence of coronary angioplasty implant and graft; Z87.891 Personal history of nicotine dependence; Z79.891 Long term (current) use of opiate analgesic
CPT/HCPCS: 36415; 36600; 71045; 80053; 82728; 82805; 83605; 83615; 83735; 84443; 85025; 85027; 85380; 85610; 85730; 86140; 86738; 87040; 87070; 87147; 87181; 87186; 87205; 87449; 87899; 93005; 94640; 96365; 96375; 99285; A9270; C9803; J0131; J0456; J0696; J1940; J2270; J7030; U0003; U0005

== ENCOUNTER 2022-06-25 11:07 | Emergency (ER) | payer MEDICARE, MEDICAID, SELFPAY ==
--- NOTE | ~2022-06-25 | XR_ITS ---
XR chest 2V DATE: 06/25/2022 11:51 INDICATION: Fever last night. Shortness of breath. History of pneumonia 2 months ago. TECHNIQUE: PA and lateral views COMPARISON: 03/11/2022 portable AP chest FINDINGS: Coronary stent and/or calcification. Heart size is normal. No pulmonary vascular congestion or pleural effusion or pneumothorax. No pulmonary infiltrate or consolidation. IMPRESSION: No active cardiopulmonary disease Reviewed, dictated and finalized at location B. TS WRITER
[2022-06-25 11:17] VITALS: BP 112/82; PULSE 84; RESP 18; TEMP 36.2; O2SAT 97
--- NOTE | 2022-06-25 11:23 | ECG_ITS ---
Measurements Intervals [place] Rate: 77 P: 35 [place]: 156 QRS: 34 QRSD: 99 T: 54 QT: 369 QTc: 419 Interpretive Statements SINUS RHYTHM NONSPECIFIC T-WAVE ABNORMALITY- ANTEROLAT/HIGH LAT LEADS BASELINE ARTIFACT- V3 BORDERLINE ECG COMPARED TO ECG 03/09/2022 10:45:24 NO SIGNIFICANT CHANGES Electronically Signed On 06-25-2022 12:03:16 HVAC RESIDENTIAL SERVICE TECHNICIAN by Julius Willis D.O.
[2022-06-25 11:39] LABS: Basophils Percent Auto 0.6 % (0.2-1.2); Eosinophils Absolute Auto 0.1 K/mm3 (0-0.3); Eosinophils Percent Auto 1.2 % (0-4.4); Hematocrit 34.2 % (37.0-47.0); Hemoglobin 11.3 g/dL (12.0-15.0); Immature Granulocyte Absolute 0.02 K/mm3 (0.00-0.031); Immature Granulocyte Percent A 0.3 % (0-0.5); Lymphocytes Absolute Auto 1.52 K/mm3 (0.9-3.2); Mean Corpuscular Hemoglobin 29.1 pg (26-34); Mean Corpuscular Volume 88.1 fl (80-100); Mean Platelet Volume 8.5 fl (7.4-10.4); Monocytes Absolute Auto 0.9 K/mm3 (0.1-0.6); Monocytes Percent Auto 12.6 % (2.6-8.5); Neutrophils Absolute Auto 4.4 K/mm3 (1.3-6.7); Neutrophils Percent Auto 63.3 % (45.5-73.1); Platelet Count Result 321 k/mm3 (150-375); Red Blood Count 3.88 M/mm3 (4.2-5.4); Red Cell Distribution Width 15.7 % (11.5-14.5); White Blood Count 6.9 K/mm3 (4.5-10.0)
[2022-06-25 11:49] LABS: Alanine Aminotransferase 33 U/L (6-35); Albumin Level 4.5 g/dL (3.5-5.1); Alkaline Phosphatase 103 U/L (38-126); Anion Gap 6 mmol/L (8-16); Aspartate Amino Transferase 37 U/L (14-36); Bilirubin,Total 0.5 mg/dL (0.2-1.3); Blood Urea Nitrogen 7 mg/dL (7-17); Calcium 8.7 mg/dL (8.4-10.2); Carbon Dioxide 31 mmol/L (22-30); Chloride 95 mmol/L (98-107); Estimated CRCL calculation 89 ml/min; Estimated Glomerular Filt Rate > 60; Glucose 124 mg/dL (65-110); Potassium 3.4 mmol/L (3.4-5.0); Sodium 132 mmol/L (137-145)
[2022-06-25 12:15] LABS: Influenza A QL RT-PCR Negative (Negative); Influenza B QL RT-PCR Negative (Negative); SARS-CoV-2 RNA PCR Negative
== END 2022-06-25 13:59 | disposition left against medical advice (07) ==
PROVIDERS: Emergency Provider Emergency Medicine; PCP Student in an Organized Health Care Education/Training Program
DX: R06.02 Shortness of breath (principal)
CPT/HCPCS: 36415; 71046; 80053; 85025; 87636; 93005; 99199

== ENCOUNTER 2022-08-23 09:56 | Emergency (ER) | payer MEDICARE, MEDICAID, SELFPAY ==
--- NOTE | ~2022-08-23 | XR_ITS ---
EXAMINATION: XR wrist RT min 3V DATE: 08/23/2022 11:34 INDICATION: Limited range of motion at the right wrist post fall TECHNIQUE: Posteroanterior, ulnar deviation, oblique, and lateral views of the right wrist were obtai radha. COMPARISON: none FINDINGS: Linear lucency consistent with nondisplaced fracture extending across the scaphoid waist. Alignment r emains essentially anatomic. No other fractures identified. Polyarticular osteoarthritis, moderate at the distal radioulnar joint and mild at the triscaphe, first carpal metacarpal and first interphalan geal joints. IMPRESSION: 1. Nondisplaced fracture across the right scaphoid waist. Reviewed, dictated and finalized at location A. WARE ENGINEERING SPECIALIST
--- NOTE | ~2022-08-23 | XR_ITS ---
EXAMINATION: XR ribs RT 2V w CXR 2V DATE: 08/23/2022 11:34 INDICATION: Right chest pain. Fall. TECHNIQUE: Frontal and lateral views of the chest and 2 views on 3 radiographs of the right ribs were obtained. COMPARISON: Chest 2 views 06/25/2022, CT abdomen and pelvis 10/14/2018 FINDINGS: CHEST TWO VIEWS: There is mild atelectasis in the lower lung zones. No pleural effusion or pneumothor ax. The heart size is normal. There are changes of posterior fusion procedure in lumbar spine. RIGHT RIBS: There is no rib fracture. IMPRESSION: 1. No rib fracture. 2. Mild atelectasis in the lower lung zones. Reviewed, dictated and finalized at location A. PEDIATRIC ALLERGIST
[2022-08-23 10:37] VITALS: BP 116/87; PULSE 86; RESP 16; TEMP 36.7; O2SAT 96
--- NOTE | 2022-08-23 12:03 | ED.UPPEXIN ---
HPI - Extremity Injury (Upper) General Chief Complaint: Extremity Injury, Upper Stated Complaint: fall, R wrist pain Time Seen by Provider: 08/23/22 11:11 Source: patient Mode of arrival: ambulatory Limitations: no limitations History of Present Illness HPI narrative: This is a 52 year old female that presents to the ER for right wrist pain after and injury just prior to arrival. Reports she tripped over a gas pump hose. Reports falling onto her right side and catching herself with her right wrist. Reports pain and decreased ROM in the wrist since. Also reporting bruising and pain to the right ribs. She did not hit her head or lose consciousness. Denies numbness or shortness of breath. Related Data Home Medications Medication Instructions Recorded Confirmed amlodipine 2.5 mg tablet 25 mg PO DAILY 03/09/22 03/09/22 atorvastatin 80 mg tablet 80 mg PO DAILY 03/09/22 03/09/22 buspirone 15 mg tablet 15 mg PO BID 03/09/22 03/09/22 clopidogrel 75 mg tablet 75 mg PO HS 03/09/22 03/09/22 diazepam 5 mg tablet 5 - 10 mg PO DAILY PRN Anxiety 03/09/22 03/09/22 famotidine 20 mg tablet 20 mg PO BID 03/09/22 03/09/22 gabapentin 300 mg capsule 300 mg PO TID 03/09/22 03/09/22 isosorbide mononitrate 30 mg 30 mg PO DAILY 03/09/22 03/09/22 tablet,extended release 24 hr levothyroxine 25 mcg tablet 25 mcg PO QAM 03/09/22 03/09/22 metoprolol tartrate 25 mg tablet 25 mg PO Q12H 03/09/22 03/09/22 montelukast 10 mg tablet 10 mg PO DAILY 03/09/22 03/09/22 nitroglycerin 0.3 mg sublingual See Rx Instructions .Route 03/09/22 03/09/22 tablet .COMPLEX PRN Angina oxycodone-acetaminophen 10 mg-325 1 tablet PO Q6H PRN Pain 03/09/22 03/09/22 mg tablet pantoprazole 40 mg tablet,delayed 40 mg PO DAILY 03/09/22 03/09/22 release rivaroxaban 20 mg tablet (Xarelto) 20 mg PO HS 09/20/22 09/20/22 venlafaxine 150 mg 150 mg PO DAILY 03/09/22 03/09/22 capsule,extended release 24 hr venlafaxine 75 mg capsule,extended 75 mg PO DAILY 03/09/22 03/09/22 release 24 hr Allergies Allergy/AdvReac Type Severity Reaction Status Date / Time No Known Allergies Allergy Verified 08/23/22 11:11 Review of Systems Review of Systems: CONSTITUTIONAL: Denies fever CARDIOVASCULAR: Reports chest/rib pain RESPIRATORY: Denies dyspnea. MUSCULOSKELETAL: Reports joint pain, and myalgia. NEUROLOGIC: Denies numbness, or weakness. All systems reviewed & are unremarkable except as noted in HPI and below PMFSH Past Medical History Medical History (Updated 08/23/22 @ 12:17 by Joyce Gonzalez PA-C) Chronic back pain Chronic obstructive pulmonary disease Chronic prescription opiate use Chronic respiratory failure with hypoxia, on home O2 therapy Coronary artery disease Depression with anxiety Gastroesophageal reflux disease Hypertension Hypothyroidism Surgical History Surgical History (Updated 03/09/22 @ 23:10 by Elena Figueredo PA-C) History of cardiac catheterization History of coronary artery stent placement History of lumbar surgery Family History Family History (Updated 03/09/22 @ 23:10 by Elena Figueredo PA-C) Other Heart disease Hypertension Social History Social History (Updated 03/09/22 @ 23:11 by Elena Figueredo PA-C) Social History: Surrogate medical decision maker: Spenser Carrera, significant other. Code status: Full code. Smoking packs per day: 3.5 Smoking cigarettes per day: 70.0 Years smoked: 20 Smoking pack-years: 70.00 Smoking status: Former smoker Tobacco type: cigarettes Second hand tobacco smoke exposure: No Alcohol intake: former Substance use: never Spiritual care concerns: No Exam Narrative: GENERAL: Well-appearing, well-nourished, and in no acute distress. HEAD: Normocephalic, atraumatic. EYES: EOMI. CHEST: Clear to auscultation. No respiratory distress. No wheezes rales or rhonchi HEART: Regular rate and rhythm. No murmur heard. Normal peripheral pulses. EXTREMITIES: Normal range of mot
[2022-08-23] MEDS: HYDROcodone/acetaminophen (*CRX) 5-325 MG TABLET 1 TAB PO (12:11)
== END 2022-08-23 12:38 | disposition home or self-care (01) ==
PROVIDERS: Emergency Provider Physician Assistant; PCP Student in an Organized Health Care Education/Training Program
DX: S62.024A Nondisplaced fracture of middle third of navicular [scaphoid] bone of right wrist, initial encounter for closed fracture (principal); J44.9 Chronic obstructive pulmonary disease, unspecified; J96.11 Chronic respiratory failure with hypoxia; Z99.81 Dependence on supplemental oxygen; I25.10 Atherosclerotic heart disease of native coronary artery without angina pectoris; F32.A Depression, unspecified; F41.9 Anxiety disorder, unspecified; K21.9 Gastro-esophageal reflux disease without esophagitis; I10 Essential (primary) hypertension; E03.9 Hypothyroidism, unspecified; W01.0XXA Fall on same level from slipping, tripping and stumbling without subsequent striking against object, initial encounter
CPT/HCPCS: 29125; 71046; 71100; 73110; 99284; A4565; A9270

== ENCOUNTER → 2022-09-27 11:39 | Outpatient (CLI) | payer MEDICARE, MEDICAID, SELFPAY ==
--- NOTE | ~2022-09-27 | XR_ITS ---
EXAMINATION: XR wrist RT min 3V DATE: 09/27/2022 12:32 INDICATION: Nondisplaced fracture of distal pole of navicular. TECHNIQUE: 4 views of right wrist were obtained. COMPARISON: Right wrist radiographs 08/23/2022 FINDINGS: There is 18 degrees dorsal tilt of lunate with respect to distal radius and 21 degrees flex ion of capitate with respect to lunate. The scaphoid tubercle is prominent due to flexion of scaphoid (signet ring sign). Again seen is a transverse fracture of the scaphoid waist in near-anatomic align ment. Bridging callus is not identified. Cast material obscures fine bone detail. IMPRESSION: 1. Scaphoid waist fracture again seen. Reviewed, dictated and finalized at location A.
== END ==
PROVIDERS: PCP Student in an Organized Health Care Education/Training Program; Visit Provider Plastic Surgery
DX: S62.014A Nondisplaced fracture of distal pole of navicular [scaphoid] bone of right wrist, initial encounter for closed fracture (principal); T14.90XA Injury, unspecified, initial encounter
CPT/HCPCS: 73110

== ENCOUNTER 2022-10-29 17:16 | Outpatient (CLI) | payer MEDICARE, MEDICAID, SELFPAY ==
--- NOTE | ~2022-10-29 | XR_ITS ---
EXAMINATION: XR wrist RT min 3V DATE: 10/29/2022 18:02 INDICATION: Fracture of wrist. TECHNIQUE: 7 views of right wrist were obtained. COMPARISON: Right wrist radiographs 09/27/2022 FINDINGS: Bone alignment is normal. No fracture. There is moderate osteoarthritis of distal radioulna r joint and mild osteoarthritis of first carpometacarpal joint. IMPRESSION: 1. No visible fracture. 2. Polyarticular osteoarthritis. Reviewed, dictated and finalized at location E.
== END 2022-10-29 17:17 | disposition home or self-care (01) ==
PROVIDERS: PCP Student in an Organized Health Care Education/Training Program; Visit Provider Plastic Surgery
DX: S62.014A Nondisplaced fracture of distal pole of navicular [scaphoid] bone of right wrist, initial encounter for closed fracture (principal); X58.XXXA Exposure to other specified factors, initial encounter; M19.041 Primary osteoarthritis, right hand
CPT/HCPCS: 73110

== ENCOUNTER 2023-01-21 11:21 | Outpatient (CLI) | payer MEDICARE, MEDICAID, SELFPAY ==
--- NOTE | ~2023-01-21 | MMUS_ITS ---
EXAMINATION: MM diagnostic vika BI w jonathan, US breast BI complete HISTORY: 02/14/2020 screening mammogram recommendation of additional mammographic views and possible b reast ultrasound for asymmetry in the anterior third of the inner left breast 3.5 cm from the nipple on craniocaudal view TECHNIQUE: Bilateral full field ML, MLO and CC and left spot 3-D tomosynthesis images were performed and synthetic 2-D images were generated. CAD analysis was submitted and interpreted. High resolution complete bilateral breast ultrasound examination including all 4 quadrants and subareolar areas was p erformed. COMPARISON: 02/14/2020 bilateral screening mammogram BREAST PARENCHYMAL COMPOSITION: There are scattered areas of fibroglandular density. FINDINGS: MAMMOGRAPHIC FINDINGS: There are scattered solitary and occasional clustered benign-appearing microcalcifications. No malign ant calcifications are evident. No suspicious mass, architectural distortion, malignant calcification, skin thickening or retraction or significant new or developing density of either breast is evident since 02/14/2020. ULTRASOUND: No suspicious mass or shadowing of either breast is detected. IMPRESSION: 1. Benign findings 2. Routine annual mammographic screening is recommended BI-RADS Category 2: Benign finding(s). Reviewed, dictated and finalized at location A. IMPRESSION: 1. Benign findings 2. Routine annual mammographic screening is recommended BI-RADS Category 2: Benign finding(s).
--- NOTE | ~2023-01-21 | US_ITS ---
EXAMINATION: US thyroid DATE: 01/21/2023 15:10 INDICATION: Dysphagia. TECHNIQUE: Multiple ultrasound images of the thyroid were obtained. COMPARISON: None. FINDINGS: The right thyroid lobe measures 3.0 x 1.0 x 1.5 cm. The left thyroid lobe measures 2.6 x 0.9 x 1.0 c m. There is normal echotexture and echogenicity throughout the thyroid gland. No discrete nodules id entified. Normal vascular flow is present. IMPRESSION: 1. Normal thyroid. Reviewed, dictated and finalized at location B. IMPRESSION: 1. Normal thyroid.
== END 2023-01-21 11:22 | disposition home or self-care (01) ==
LOC: ANHIMG 11:24
PROVIDERS: PCP Student in an Organized Health Care Education/Training Program; Visit Provider Student in an Organized Health Care Education/Training Program
DX: R92.8 Other abnormal and inconclusive findings on diagnostic imaging of breast (principal); R13.10 Dysphagia, unspecified
CPT/HCPCS: 76536; 76641; 77062; 77066; G0279

== ENCOUNTER 2024-03-08 10:20 | Outpatient (CLI) | payer MEDICARE, MEDICAID, SELFPAY ==
--- NOTE | ~2024-03-08 | US_ITS ---
EXAMINATION: US venous doppler [facility] DATE: 03/08/2024 11:19 INDICATION: Acute left lower limb pain and swelling TECHNIQUE: Grayscale ultrasound images without and with compression and Doppler ultrasound images of the left lower extremity veins were obtained. COMPARISON: None. FINDINGS: The visualized portions of left common femoral vein, profunda (deep) femoral vein, femoral vein, popl iteal vein, peroneal veins, posterior tibial veins, gastrocnemius vein and greater saphenous vein out flow are patent. IMPRESSION: 1. No deep venous thrombosis in the left lower limb. Reviewed, dictated and finalized at location B.
== END 2024-03-08 10:21 | disposition home or self-care (01) ==
PROVIDERS: PCP Student in an Organized Health Care Education/Training Program; Visit Provider Student in an Organized Health Care Education/Training Program
DX: M25.562 Pain in left knee (principal); M79.605 Pain in left leg; M79.89 Other specified soft tissue disorders
CPT/HCPCS: 93971

== ENCOUNTER 2024-06-07 09:25 | Outpatient (CLI) | payer MEDICARE, MEDICAID, SELFPAY ==
--- NOTE | ~2024-06-07 | MR_ITS ---
MRI of the left knee Clinical history: Pain Technique: Coronal proton density and proton density-weighted images, sagittal proton-density and T2 fat-sat images, and axial proton-density fat-saturated images were acquired. Findings: Anterior and posterior cruciate ligaments are intact. Medial collateral ligament and the la teral collateral ligament complex are intact. Popliteus tendon is intact. There is complex flap tearing of the posterior horn of the medial meniscus, probably extending to the body segment. Lateral meniscus is intact. Articular cartilage in the patellofemoral compartment is well preserved. There is extensive high-grad e chondromalacia on both sides the medial compartment. Lateral compartment articular cartilage is wel l preserved. There is mild reactive amorphous marrow edema about the medial compartment. Extensor mechanism is intact. Small to moderate joint effusion present. Moderate Salazar's cyst. Impression: Complex flap tearing of the posterior horn and body of the medial meniscus. Advanced chondromalacia of the medial compartment, as above. Small to moderate joint effusion with moderate Salazar's cyst. Reviewed, dictated and finalized at location . TEGIC PLANNER Impression: Complex flap tearing of the posterior horn and body of the medial meniscus. Advanced chondromalacia of the medial compartment, as above. Small to moderate joint effusion with moderate Salazar's cyst.
== END 2024-06-07 09:26 | disposition home or self-care (01) ==
LOC: ANHIMG 09:29
PROVIDERS: PCP Student in an Organized Health Care Education/Training Program; Visit Provider Orthopaedic Surgery
DX: S83.242A Other tear of medial meniscus, current injury, left knee, initial encounter (principal); X58.XXXA Exposure to other specified factors, initial encounter; M22.42 Chondromalacia patellae, left knee; M25.462 Effusion, left knee; M71.22 Synovial cyst of popliteal space [Baker], left knee
CPT/HCPCS: 73721

== ENCOUNTER 2024-07-12 11:32 | Outpatient (CLI) | payer MEDICARE, MEDICAID, SELFPAY ==
--- NOTE | 2024-07-12 14:33 | ECG_ITS ---
Test Date: 2024-07-12 15:08:51 Measurements Intervals [place] Rate: 79 P: 66 TN: 170 QRS: 27 QRSD: 97 T: 62 QT: 393 QTc: 452 Interpretive Statements SINUS RHYTHM NONSPECIFIC T-WAVE ABNORMALITY No previous ECG available for comparison Electronically Signed On 07-13-2024 11:50:53 TOWER ERECTOR HELPER by Usha Linares
[2024-07-12 15:36] LABS: Hematocrit 38.6 % (37.0-47.0); Hemoglobin 12.5 g/dL (12.0-15.0)
[2024-07-12 15:47] LABS: Anion Gap 7 mmol/L (4-12); Blood Urea Nitrogen 13 mg/dL (7-17); Calcium 9.1 mg/dL (8.4-10.2); Carbon Dioxide 34 mmol/L (22-30); Chloride 100 mmol/L (98-107); Estimated Glomerular Filt Rate > 60; Glucose 85 mg/dL (65-110); Potassium 3.7 mmol/L (3.4-5.0); Sodium 141 mmol/L (137-145)
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
--- OUTSIDE RECORDS SUMMARY | 2024-07-13 04:36 | XMS_ITS | Encounter Summary ---
Author Organization [facility] Address [address] [place] [address]. [place], [place] [id number] [place] [id number] Care Team Providers Care Mold Press Operator Name Role Phone Trae Baez MD Unavailable [phone] Shamar Grajeda DO Primary Care Provider + Encounter Details Date Type Department Care Team (Late st Contact Info) Description 04/18/2024 Roostt Message Enc [facility] Family & Internal Medicine [place] [id number] [place] [address] Shamar Grajeda DO [address] [place] [address] My pain meds are due to be refilled on 04/22 Social History Tobacco Use Types Packs/Day Years Used Date Smoking Tobacco: Former Cigarettes 3 35 1 983 - 2018 Smokeless Tobacco: Never Comments:05-28-19 also quit v aping in 2019 Alcohol Use Standard Drinks/Week Comments No 0 (1 standard drink = 0.6 oz pur e alcohol) PHQ-2 Answer Date Recorded Patient Health Questionnaire-2 Score 0 08/23/2022 Comments No Sex and Gender Information Value Date Recorded Sex Assigned at Female 07/11/2024 11:40 AM INTERNATIONAL EDITORIAL PRODUCER Legal Sex Female 4:54 PM CDT Gender Identity Female 07/11/2024 11:40 AM INTERNATIONAL EDITORIAL PRODUCER Sexual Orientation Not on file Occupation Industry Job Start Date Job End Date Not on file Not on file Not on file Not on file documented as of this encounter Functional Status * RETIRED Are you deaf or do you have serious difficulty hearing Answer Date of Assessment Author Status No 08/25/2017 2:25 PM INTERNATIONAL EDITORIAL PRODUCER Activ e * RETIRED Are you blind or do you have serious difficulty seeing, even when wearing glasses? Answer Date of Assessment Author Status No 08/25/2017 2:25 PM INTERNATIONAL EDITORIAL PRODUCER Activ e * Do you have serious difficulty walking or climbing stairs? Answer Date of Assessment Author Status No 08/25/2017 2:25 PM Evelin Sigala RN Active * Do you have difficulty dressing or bathing? Answer Date of Assessment Author Status No 08/25/2017 2:25 PM Evelin Sigala RN Active * Because of a physical, mental, or emotional condition, do you have difficulty doing errands alone such as visiting a doctor's office or shopping? Answer Date of Assessment Author Status No 08/25/2017 2:25 PM Evelin Sigala RN Active documented as of this encounter Mental Status * Because of a physical, mental, or emotional condition, do you have serious difficulty concentrating, remembering, or making decisions? Answer Entry Date Author Status No 08/25/2017 2:25 PM Evelin Sigala RN Active documented in this encounter Plan of Treatment Not on file documented as of this encounter Visit Diagnoses Not on filedocumented in this encounter Additional Health Concerns Assessment Noted Time PHQ-9 Depression Total Score: 0 06/22/19 22 10:15 AM INTERNATIONAL EDITORIAL PRODUCER documented as of this encounter Care Teams Mold Press Operator Relationship Specialty Start Date End Date Shamar Grajeda DO [address] [place] [id number] PCP - General FAMILY PRACTICE 07/27/18 Trae Baez MD [facility] [address] [place] [address] [place] Personal Finance Instructor CARDIOVASCULAR DISEASE 08/19/17 documented as of this encounter
--- OUTSIDE RECORDS SUMMARY | 2024-07-13 04:36 | XMS_ITS | Encounter Summary ---
Author Organization [facility] Healthcare Address [address] [place] [address] Care Team Providers Care Bottle House Pumper Name Role Phone Mihaela Marie MD Primary Care Provider [phone] Shamar Grajeda DO Unavailable Shamar Grajeda DO Primary Care Provide r Encounter Details Date Type Department Care Team (Late st Contact Info) Description 11/27/2020 Telephone [facility] - [facility] [address] [place] [address] Transcribed Order, Provider Social History Tobacco Use Types Packs/Day Years Used Date Smoking Tobacco: Former Cigarettes 0.2 15 0 02/2003 - 02/2018 Smokeless Tobacco: Never Comments No Sex and Gender Information Value Date Recorded Sex Assigned at Not on file Legal Sex Female 11:07 PM SUPERVISOR OF RESEARCH Gender Identity Not on file Sexual Orientation Not on file documented as of this encounter Plan of Treatment Not on file documented as of this encounter Visit Diagnoses Not on filedocumented in this encounter Additional Health Concerns Infection Onset Date Last Indicated Resolved Time COVID: Suspected 07/19/2023 07/19/2023 07/19/2023 3:26 AM SUPERVISOR OF RESEARCH documented as of this encounter Care Teams Bottle House Pumper Relationship Specialty Start Date End Date Mihaela Marie MD [address] [place] [address] PCP - General 03/05/20 07/04/23 Shamar Grajeda DO [address] [place] [address] PCP - General Family Medicine 07/05/23 Shamar Grajeda DO [address] [place] [address] Referring Physician Family Medicine 07/07/21 documented as of this encounter
--- OUTSIDE RECORDS SUMMARY | 2024-07-13 04:36 | XMS_ITS | Referral Summary ---
Author Organization [facility] [employer] Address [address] [place] [address] Care Team Providers Care General Merchandise Salesperson Name Role Phone Mihaela Marie MD Primary Care Provider [phone] Source Comments [facility] [employer],non-owned Affiliates and Associated Physician Practices is amultiple site organization consisting of ambulatory clinics and hospital sitesin [place], [place], [place] and [place]. This disclosure is being madepursuant to the Care Everywhere program and may not contain all information available regarding this patient. Last updated 18.[facility] [employer] Allergies No known active allergies Medications * [...] (FLONASE ALLERGY RELIEF) 50 MCG/ACT nasal spray [place] 2 sprays into each nostril once daily [...] Administration Dates Next Due PNEUMOCOCCAL PPSV23 05/17/2018 Social History Tobacco Use Types Packs/Day Years [...] Comments Blood Pressure 120/72 05/17/2018 3:06 PM [employer] Pulse 69 05/17/2018 3:06 PM [employer] Temperature 36.8 ??C (98.3 ??F) 05/17/2018 3:06 PM CS T Respiratory Rate 18 02/27/2018 4:12 PM CDT Oxygen Saturation 98% 05/17/2018 3:06 PM [employer] Inhaled Oxygen Concentration 40% 02/20/2018 9 :00 AM CDT Weight 77.1 kg (170 lb) 03/30/2018 1:17 PM CDT Height 165.1 cm (5' 5 ) 03/30/2018 1:17 PM CDT Body Mass Index 28.29 03/30/2018 1:17 PM CDT Functional Status Functional Status Response Date of Assess ment Is person deaf or have serious hearing difficult y? No 02/19/2018 Is person blind or have serious difficulty seein g? No 02/19/2018 Does person have serious dif ficulty walking/climbing stairs? No 02/19/2018 Does person have difficulty dressing/bathing? No 02/19/2018 Does person have difficulty doing errands alone? No 02/19/2018 Cognitive Status Response Date of Assessm ent Does person have difficulty concentrating/remembering/making decisions? No 02/19/2018 Plan of Treatment Not on file Advance Directives * Full Code (Latest Code Status on File) Date Activated Date Inactivated Comments 02/19/2018 5:36 AM 02/27/2018 6:28 PM * Full Code Date Activated Date Inactivated Comments 02/19/2018 4:43 AM 02/19/2018 5:36 AM Care Teams General Merchandise Salesperson Relationship Specialty Start Date End Date Mihaela Marie MD [address] [place] [address] PCP - General Internal Medicine 03/09/18
--- OUTSIDE RECORDS SUMMARY | 2024-07-13 04:36 | XMS_ITS | Patient Health Summary ---
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 Alexandra ging 02/19/2018 8:49 AM CDT Impressions 02/19/2018 10:46 AM CDT IMPRESSION: A gastric tube terminates in the ??stomach. Dictated by Karan Cano DO (residential sales consultant). I, Dr. GOYO CALLE MD have personally reviewed and interpreted this examination/study. This report was electronically signed by GOYO CALLE MD ??on 02/19/2018 10:46 AM . Narrative 02/19/2018 10:46 AM CDT EXAMINATION: XR ABDOMEN KUB PORTABLE HISTORY: Enteric tube placement COMPARISON: No prior study is available for comparison. Procedure Note Goyo Calle MD - 02/19/2018 EXAMINATION: XR ABDOMEN KUB PORTABLE HISTORY: Enteric tube placement COMPARISON: No prior study is available for comparison. IMPRESSION: A gastric tube terminates in the stomach. Dictated by Karan Cano DO (residential sales consultant). I, Dr. GOYO CALLE MD have personally reviewed and interpreted this examination/study. This report was electronically signed by GOYO CALEL MD on 02/19/2018 10:46 AM . Gino Ramos MD DIAGNOSTIC IMAGING O RDERABLES * CT CHEST ABDOMEN PELVIS W CONT (02/19/2018 5:06 AM CDT) Anatomical Region Laterality Modality Chest, Abdomen, Pelvis Computed Tomography 02/19/2018 5:10 AM CDT Impressions 02/19/2018 4:06 PM CDT IMPRESSION: Moderate volume right pneumothorax despite 2 thoracostomy tubes. Severe subcutaneous emphysema extending into the bilateral upper extremities, neck, and extending along the anterior abdominal wall and inferiorly as far as the right labia majora. Heterogeneous enhancement within the endometrial cavity with an irregular shape concerning for a necrotic mass and malignancy cannot be excluded. A tampon is present in the vagina. Recommend pelvic ultrasound for further evaluation when feasible. Otherwise, no major visceral, vascular, or osseous injury in the abdomen or pelvis. Findings verbally relayed to Dr. Mandel by Robbin Lau M.D. at at 0515 on 02/19/2018. Dictated by Robbin Lau M.D. (residential sales consultant). I, Dr. Fredy HARRIS M.D. have personally reviewed and interpreted this examination/study. This report was electronically signed by Fredy HARRIS M.D. ??on 02/19/2018 4:06 PM . Narrative 02/19/2018 4:06 PM CDT EXAMINATION: Computed tomography (CT) of the chest, abdomen, and pelvis with contrast HISTORY: trauma TECHNIQUE: CT of the chest, abdomen, and pelvis was performed after the uneventful administration of 100 mL of Isovue-370 intravenous contrast according to standard protocol. COMPARISON: No prior study is available for comparison. FINDINGS: Chest: There is a left-sided three-vessel aortic arch. The aorta and main pulmonary arteries are normal in course and caliber. A moderate volume right pneumothorax is identified despite placement of 2 right-sided thoracostomy tubes, the superior one extending anteriorly and medially, the basilar one extending medially and inferiorly adjacent to the posterior aspect of the heart. Associated moderate volume pneumomediastinum is also seen. A left-sided thoracostomy tube is apically oriented and terminates manually in the left apex. Small left pneumothorax is identified. A small volume right pleural effusion with associated dependent atelectasis is identified. Mild dependent atelectasis is seen on the left. No suspicious pulmonary nodule is identified. An endotracheal tube terminates in the midthoracic trachea. Extensive subcutaneous emphysema is seen throughout the anterior and lateral chest hammer. The air dissects superiorly into the bilateral upper extremities, soft tissues of the neck, and inferiorly along the anterior abdominal wall to the level of the right labia majora. The heart size is normal. No pericardial effusion is identified. No mediastinal, hilar, supraclavicular, or axillary lymphadenopathy is seen. The thyroid gland enhances homogenously. Abdomen/pelvis: Several hypoattenuating lesions throughout the liver (series 3 image 71), are simple fluid in measurement likely represent simple hepatic cysts. The liver otherwise enhances homogenously. Gallstone is present within the gallbladder without evidence of pericholecystic fluid or wall thickening. The intrahepatic and extrahepatic bile ducts are nondilated. The spleen enhances homogenously without focal lesion. The pancreas and adrenal glands are normal. The kidneys enhance symmetrically. There is no evidence of renal calculus or hydronephrosis. The esophagus appears normal. The stomach is moderately distended with an air-fluid level. The small bowel and large bowel are normal in caliber without evidence of wall thickening or obstruction. The appendix appears normal without appendicolith or surrounding inflammatory changes. No free fluid is identified within the abdomen. Loculated air dissects down the anterior abdominal wall. ??There is no abdominal lymphadenopathy. A Montez catheter is in place. Minimal contrast distention of the urinary bladder is identified. The bladder appears intact without evidence of gross abnormality. There is heterogeneous enhancement within the endometrial cavity which appears to have irregular contours concerning for necrotic mass and malignancy cannot be excluded. A tampon is present in the vagina. No free fluid is seen within the pelvis. There is no pelvic lymphadenopathy. Bone windows demonstrate no suspicious lytic or blastic lesions. A postoperative appearance from posterior spinal fusion at the L4-L5 level with laminectomy at these levels is also identified. No gross Procedure Note Dayanara Harris MD - 02/19/2018 EXAMINATION: Computed tomography (CT) of the chest, abdomen, and pelvis with contrast HISTORY: trauma TECHNIQUE: CT of the chest, abdomen, and pelvis was performed after the uneventful administration of 100 mL of Isovue-370 intravenous contrast according to standard protocol. COMPARISON: No prior study is available for comparison. FINDINGS: Chest: There is a left-sided three-vessel aortic arch. The aorta and main pulmonary arteries are normal in course and caliber. A moderate volume right pneumothorax is identified despite placement of2 right-sided thoracostomy tubes, the superior one extending anteriorlyand medially, the basilar one extending medially and inferiorly adjacent to the posterior aspect of the heart. Associated moderate volume pneumomediastinum is also seen. A left-sided thoracostomy tube isapically oriented and terminates manually in the left apex. Small leftpneumothorax is identified. A small volume right pleural effusion with associated dependent atelectasis is identified. Mild dependent atelectasis is seenon the left. No suspicious pulmonary nodule is identified. An endotracheal tube terminates in the midthoracic trachea. Extensive subcutaneous emphysema is seen throughout the anterior and lateral chest hammer. The air dissects superiorly into the bilateralupper extremities, soft tissues of the neck, and inferiorly along the anterior abdominal wall to the level of the right labia majora. The heart size is normal. No pericardial effusion is identified. No mediastinal, hilar, supraclavicular, or axillary lymphadenopathy isseen. The thyroid gland enhances homogenously. Abdomen/pelvis: Several hypoattenuating lesions throughout the liver (series 3 image71), are simple fluid in measurement likely represent simple hepatic cysts.The liver otherwise enhances homogenously. Gallstone is present within the gallbladder without evidence of pericholecystic fluid or wallthickening. The intrahepatic and extrahepatic bile ducts are nondilated. The spleen enhances homogenously without focal lesion. The pancreas and adrenal glands are normal. The kidneys enhance symmetrically. There is noevidence of renal calculus or hydronephrosis. The esophagus appears normal. The stomach is moderately distended withan air-fluid level. The small bowel and large bowel are normal in caliber without evidence of wall thickening or obstruction. The appendix appears normal without appendicolith or surrounding inflammatory changes. Nofree fluid is identified within the abdomen. Loculated air dissects down the anterior abdominal wall. There is no abdominal lymphadenopathy. A Montez catheter is in place. Minimal contrast distention of the urinary bladder is identified. The bladder appears intact without evidence of gross abnormality. There is heterogeneous enhancement within the endometrial cavity which appears to have irregular contours concerningfor necrotic mass and malignancy cannot be excluded. A tampon is present in the vagina. No free fluid is seen within the pelvis. There is no pelvic lymphadenopathy. Bone windows demonstrate no suspicious lytic or blastic lesions. A postoperative appearance from posterior spinal fusion at the L4-L5 level with laminectomy at these levels is also identified. No gross IMPRESSION: Moderate volume right pneumothorax despite 2 thoracostomy tubes. Severe subcutaneous emphysema extending into the bilateral upper extremities, neck, and extending along the anterior abdominal wall and inferiorly as far as the right labia majora. Heterogeneous enhancement within the endometrial cavity with anirregular shape concerning for a necrotic mass and malignancy cannot be excluded.A tampon is present in the vagina. Recommend pelvic ultrasound for further evaluation when feasible. Otherwise, no major visceral, vascular, or osseous injury in the abdomen or pelvis. Findings verbally relayed to Dr. Mandel by Robbin Lau M.D. at at 0515 on 02/19/2018. Dictated by Robbin Lau M.D. (residential sales consultant). I, Dr. Fredy HARRIS M.D. have personally reviewed and interpretedthis examination/study. This report was electronically signed by Fredy HARRIS M.D. on 02/19/2018 4:06 PM . Mandy Alonso MD CT ORDERABLES * CT ANGIO BRAIN AND NECK (02/19/2018 5:06 AM CDT) Anatomical Region Laterality Modality Head Computed Tomogra phy 02/19/2018 5:35 AM CDT Impressions 02/19/2018 2:54 PM CDT IMPRESSION: 1.No acute intracranial hemorrhage, mass effect, or edema. 2.No large arterial occlusions or significant stenoses identified in the head or neck. No evidence of arterial dissection or aneurysms. 3.Extensive subcutaneous emphysema involving the head, face, deep fascial planes of the neck and chest hammer. 4.Bilateral pneumothoraces and pleural effusions and pneumomediastinum. Please refer to dedicated chest CT report for findings in the chest. This report was approved ??by Robbin Lau Dr ?? on 02/19/2018 2:54 PM . I, Dr. ELIECER KIRBY have personally reviewed and interpreted this examination/study. This report was electronically signed by ELIECER KIRBY ??on 02/19/2018 2:54 PM . Narrative 02/19/2018 2:54 PM CDT EXAMINATION: 1. Computed tomographic (CT) angiography of the head without and with contrast 2. CT angiography of the neck with contrast HISTORY: Trauma TECHNIQUE: CT of the head was performed without contrast according to standard protocol. Then CT angiography of the head and neck was obtained after the uneventful administration of 100 mL Isovue-370 intravenous contrast. Three dimensional postprocessing was performed by the technologist and sent to the workstation for review. FINDINGS: No prior study is available for comparison at the time of this dictation. Non-angiographic findings: No acute intra- or extra-axial fluid collections are identified. The rollins-white matter differentiation is maintained. The ventricles are of normal size, shape, and morphology. The basilar cisterns are patent. No mass effect or midline shift is seen. Extensive subcutaneous emphysema is identified involving portions of the head, the face, the anterior and lateral neck soft tissues, and the anterior upper posterior chest hammer. Mild opacification of the middle ethmoid air cells is identified. The remaining paranasal sinuses and bilateral mastoid air cells are well formed and aerated. The intraorbital structures are intact. No acute calvarial fracture is identified. CT ARTERIOGRAM: Suboptimal opacification of the arterial vessels due to technical factors related to contrast bolus timing. Bilateral pneumothorax/hemopneumothorax or pleural effusions, right more than left and partially imaged left chest tube. Left subclavian catheter terminates in the distal left innominate vein. Please refer to dedicated chest CT report for findings in the chest. Extracranial Circulation: Aortic Arch: The left vertebral artery originating directly from the aortic arch. There is minimal atherosclerotic calcification at the origin of the left vertebral artery. There is minimal atherosclerotic calcification along the descending thoracic aorta. There is no significant stenosis in the proximal brachiocephalic vessels. Carotid Stenosis: Right Common: ??No significant stenosis. Right Internal Carotid ??Plaque: ??Mild atherosclerotic plaque formation at the right carotid bulb and proximal right ICA. Right Internal Carotid Stenosis (% by NASCET Criteria): ??None Left Common: ??No significant stenosis. Left Internal Carotid Plaque: ??Minimal atherosclerotic plaque formation at the left carotid bulb. Left Internal Carotid Stenosis (% by NASCET Criteria): ??None Cervical Vertebral Arteries: Patency: ??Bilateral Dominance: ??Codominant Intracranial Circulation: Anterior Circulation: ??Mild mural calcification of the cavernous portion of the right internal carotid is identified without focal stenosis. Otherwise on the distal internal carotid arteries appear normal. The anterior and middle cerebral arteries appear normal. No aneurysms, vascular occlusions, or intracranial stenoses are identified. Vertebrobasilar Circulation: ?? The distal vertebral arteries are tortuous, however patent without evidence of stenosis or occlusion. A dominant left vertebral artery is identified. The basilar artery and posterior cerebral arteries appear normal. No aneurysms, vascular occlusions, or intracranial stenoses are identified. Procedure Note Eliecer Kirby MD - 02/19/2018 EXAMINATION: 1. Computed tomographic (CT) angiography of the head without and with contrast 2. CT angiography of the neck with contrast HISTORY: Trauma TECHNIQUE: CT of the head was performed without contrast according to standard protocol. Then CT angiography of the head and neck was obtained after the uneventful administration of 100 mL Isovue-370 intravenous contrast. Three dimensional postprocessing was performed by the technologist and sent to the workstation for review. FINDINGS: No prior study is available for comparison at the time of this dictation. Non-angiographic findings: No acute intra- or extra-axial fluid collections are identified. The rollins-white matter differentiation is maintained. The ventricles are of normal size, shape, and morphology. The basilar cisterns are patent. No mass effect or midline shift is seen. Extensive subcutaneous emphysema is identified involving portions of the head, the face, the anterior and lateral neck soft tissues, and the anterior upper posterior chest hammer. Mild opacification of the middle ethmoid air cells is identified. The remaining paranasal sinuses and bilateral mastoid air cells are well formed and aerated. The intraorbital structures are intact. No acute calvarial fracture is identified. CT ARTERIOGRAM: Suboptimal opacification of the arterial vessels due to technicalfactors related to contrast bolus timing. Bilateralpneumothorax/hemopneumothorax or pleural effusions, right more than left and partially imaged leftchest tube. Left subclavian catheter terminates in the distal left innominate vein. Please refer to dedicated chest CT report for findings in thechest. Extracranial Circulation: Aortic Arch: The left vertebral artery originating directly from the aortic arch. There is minimal atherosclerotic calcification at theorigin of the left vertebral artery. There is minimal atherosclerotic calcification along the descending thoracic aorta. There is nosignificant stenosis in the proximal brachiocephalic vessels. Carotid Stenosis: Right Common: No significant stenosis. Right Internal Carotid Plaque: Mild atherosclerotic plaque formationat the right carotid bulb and proximal right ICA. Right Internal Carotid Stenosis (% by NASCET Criteria): None Left Common: No significant stenosis. Left Internal Carotid Plaque: Minimal atherosclerotic plaque formationat the left carotid bulb. Left Internal Carotid Stenosis (% by NASCET Criteria): None Cervical Vertebral Arteries: Patency: Bilateral Dominance: Codominant Intracranial Circulation: Anterior Circulation: Mild mural calcification of the cavernous portion of the right internal carotid is identified without focal stenosis. Otherwise on the distal internal carotid arteries appear normal. The anterior and middle cerebral arteries appear normal. No aneurysms, vascular occlusions, or intracranial stenoses are identified. Vertebrobasilar Circulation: The distal vertebral arteries aretortuous, however patent without evidence of stenosis or occlusion. A dominantleft vertebral artery is identified. The basilar artery and posteriorcerebral arteries appear normal. No aneurysms, vascular occlusions, or intracranial stenoses areidentified. IMPRESSION: 1.No acute intracranial hemorrhage, mass effect, or edema. 2.No large arterial occlusions or significant stenoses identified in the head or neck. No evidence of arterial dissection or aneurysms. 3.Extensive subcutaneous emphysema involving the head, face, deepfascial planes of the neck and chest hammer. 4.Bilateral pneumothoraces and pleural effusions and pneumomediastinum. Please refer to dedicated chest CT report for findings in the chest. This report was approved by Robbin Lau Dr on 02/19/2018 2:54 PM . IDr. ELIECER have personally reviewed and interpreted this examination/study. This report was electronically signed by ELIECER KIRBY on02/19/2018 2:54 PM . Mandy Alonso MD CT ORDERABLES * CT LUMBAR SPINE WO CONTRAST (02/19/2018 5:06 AM CDT) Anatomical Region Laterality Modality Spine Computed Tomogra phy 02/19/2018 5:47 AM CDT Impressions 02/19/2018 3:09 PM CDT IMPRESSION: 1.No evidence of acute fracture in the thoracic or lumbar spine. 2.Postoperative findings and degenerative changes as described above. 3.Subcutaneous emphysema, bilateral pneumothoraces, pleural effusions or hemopneumothorax and pneumomediastinum as outlined. Please refer to dedicated chest CT report for findings in the chest. This report was approved ??by Robbin Lau Dr ?? on 02/19/2018 3:09 PM . I, Dr. ELIECER KIRBY have personally reviewed and interpreted this examination/study. This report was electronically signed by ELIECER KIRBY ??on 02/19/2018 3:09 PM . Narrative 02/19/2018 3:09 PM CDT EXAMINATION: 1. CT of the thoracic spine without contrast 2. CT of the lumbar spine without contrast HISTORY: trauma TECHNIQUE: CT of the cervical, thoracic, and lumbar spine was performed without contrast according to standard protocol. FINDINGS: No prior study is available for comparison at the time of this dictation. Thoracic spine: The vertebral body alignment is normal. No subluxation is identified. No acute compression fracture or compression deformity is identified. Intervertebral disc spaces are maintained. No significant central canal or neural foraminal stenosis is identified. Extensive subcutaneous emphysema is identified throughout the anterior chest wall and back. Bilateral right more than left pleural effusion/hemothorax. Dependent atelectasis is seen bilaterally in the lungs may represent chronic lung contusions. Bilateral pneumothoraces and pneumomediastinum. Please refer to dedicated chest CT report for findings in the chest. Lumbar spine: A postoperative appearance from posterior spinal fusion at the L4-5 level with L4 laminectomy and L3 and L5 partial laminectomies. Surgical hardware is intact without evidence of failure or loosening. The vertebral body alignment is normal. No subluxation is seen. No acute fracture or compression deformity is identified. Mild intervertebral disc space narrowing is noted at the L4-L5 and L5-S1 levels. Mild degenerative joint changes are seen throughout the lumbar spine. No degraded central canal or neural foraminal stenosis is identified. Simultaneous emphysema is seen extending from the posterior chest wall to the lower back. Procedure Note Eliecer Kirby MD - 02/19/2018 EXAMINATION: 1. CT of the thoracic spine without contrast 2. CT of the lumbar spine without contrast HISTORY: trauma TECHNIQUE: CT of the cervical, thoracic, and lumbar spine was performed without contrast according to standard protocol. FINDINGS: No prior study is available for comparison at the time of this dictation. Thoracic spine: The vertebral body alignment is normal. No subluxation is identified. No acute compression fracture or compression deformity is identified. Intervertebral disc spaces are maintained. No significant central canalor neural foraminal stenosis is identified. Extensive subcutaneousemphysema is identified throughout the anterior chest wall and back. Bilateralright more than left pleural effusion/hemothorax. Dependent atelectasis isseen bilaterally in the lungs may represent chronic lung contusions.Bilateral pneumothoraces and pneumomediastinum. Please refer to dedicated chest CT report for findings in the chest. Lumbar spine: A postoperative appearance from posterior spinal fusion at the L4-5level with L4 laminectomy and L3 and L5 partial laminectomies. Surgicalhardware is intact without evidence of failure or loosening. The vertebral body alignment is normal. No subluxation is seen. No acute fracture or compression deformity is identified. Mild intervertebral disc space narrowing is noted at the L4-L5 and L5-S1 levels. Mild degenerativejoint changes are seen throughout the lumbar spine. No degraded central canalor neural foraminal stenosis is identified. Simultaneous emphysema is seen extending from the posterior chest wall to the lower back. IMPRESSION: 1.No evidence of acute fracture in the thoracic or lumbar spine. 2.Postoperative findings and degenerative changes as described above. 3.Subcutaneous emphysema, bilateral pneumothoraces, pleural effusions or hemopneumothorax and pneumomediastinum as outlined. Please refer to dedicated chest CT report for findings in the chest. This report was approved by Robbin Lau Dr on 02/19/2018 3:09 PM . IDr. ELIECER have personally reviewed and interpreted this examination/study. This report was electronically signed by ELIECER KIRBY on02/19/2018 3:09 PM . Mandy Alonso MD CT ORDERABLES * CT THORACIC SPINE WO CONTRAST (02/19/2018 5:06 AM CDT) Anatomical Region Laterality Modality Spine Computed Tomogra phy 02/19/2018 5:47 AM CDT Impressions 02/19/2018 3:09 PM CDT IMPRESSION: 1.No evidence of acute fracture in the thoracic or lumbar spine. 2.Postoperative findings and degenerative changes as described above. 3.Subcutaneous emphysema, bilateral pneumothoraces, pleural effusions or hemopneumothorax and pneumomediastinum as outlined. Please refer to dedicated chest CT report for findings in the chest. This report was approved ??by Robbin Lau Dr ?? on 02/19/2018 3:09 PM . I, Dr. ELIECER KIRBY have personally reviewed and interpreted this examination/study. This report was electronically signed by ELIECER KIRBY ??on 02/19/2018 3:09 PM . Narrative 02/19/2018 3:09 PM CDT EXAMINATION: 1. CT of the thoracic spine without contrast 2. CT of the lumbar spine without contrast HISTORY: trauma TECHNIQUE: CT of the cervical, thoracic, and lumbar spine was performed without contrast according to standard protocol. FINDINGS: No prior study is available for comparison at the time of this dictation. Thoracic spine: The vertebral body alignment is normal. No subluxation is identified. No acute compression fracture or compression deformity is identified. Intervertebral disc spaces are maintained. No significant central canal or neural foraminal stenosis is identified. Extensive subcutaneous emphysema is identified throughout the anterior chest wall and back. Bilateral right more than left pleural effusion/hemothorax. Dependent atelectasis is seen bilaterally in the lungs may represent chronic lung contusions. Bilateral pneumothoraces and pneumomediastinum. Please refer to dedicated chest CT report for findings in the chest. Lumbar spine: A postoperative appearance from posterior spinal fusion at the L4-5 level with L4 laminectomy and L3 and L5 partial laminectomies. Surgical hardware is intact without evidence of failure or loosening. The vertebral body alignment is normal. No subluxation is seen. No acute fracture or compression deformity is identified. Mild intervertebral disc space narrowing is noted at the L4-L5 and L5-S1 levels. Mild degenerative joint changes are seen throughout the lumbar spine. No degraded central canal or neural foraminal stenosis is identified. Simultaneous emphysema is seen extending from the posterior chest wall to the lower back. Procedure Note Eliecer Kirby MD - 02/19/2018 EXAMINATION: 1. CT of the thoracic spine without contrast 2. CT of the lumbar spine without contrast HISTORY: trauma TECHNIQUE: CT of the cervical, thoracic, and lumbar spine was performed without contrast according to standard protocol. FINDINGS: No prior study is available for comparison at the time of this dictation. Thoracic spine: The vertebral body alignment is normal. No subluxation is identified. No acute compression fracture or compression deformity is identified. Intervertebral disc spaces are maintained. No significant central canalor neural foraminal stenosis is identified. Extensive subcutaneousemphysema is identified throughout the anterior chest wall and back. Bilateralright more than left pleural effusion/hemothorax. Dependent atelectasis isseen bilaterally in the lungs may represent chronic lung contusions.Bilateral pneumothoraces and pneumomediastinum. Please refer to dedicated chest CT report for findings in the chest. Lumbar spine: A postoperative appearance from posterior spinal fusion at the L4-5level with L4 laminectomy and L3 and L5 partial laminectomies. Surgicalhardware is intact without evidence of failure or loosening. The vertebral body alignment is normal. No subluxation is seen. No acute fracture or compression deformity is identified. Mild intervertebral disc space narrowing is noted at the L4-L5 and L5-S1 levels. Mild degenerativejoint changes are seen throughout the lumbar spine. No degraded central canalor neural foraminal stenosis is identified. Simultaneous emphysema is seen extending from the posterior chest wall to the lower back. IMPRESSION: 1.No evidence of acute fracture in the thoracic or lumbar spine. 2.Postoperative findings and degenerative changes as described above. 3.Subcutaneous emphysema, bilateral pneumothoraces, pleural effusions or hemopneumothorax and pneumomediastinum as outlined. Please refer to dedicated chest CT report for findings in the chest. This report was approved by Robbin Lau Dr on 02/19/2018 3:09 PM . IDr. ELIECER have personally reviewed and interpreted this examination/study. This report was electronically signed by ELIECER KIRBY on02/19/2018 3:09 PM . Mandy Alonso MD CT ORDERABLES * RETYPE PATIENT (02/19/2018 3:47 AM CDT) ABO 02/19/2018 5:00 AM CDT [facility] Rh Type 02/19/2018 5:00 AM CDT [facility] Typem 02/19/2018 5:00 AM CDT [facility] Interpretation 02/19/2018 5:00 AM CDT [facility] Blood BLOOD SPECIMEN / Unknown Venipuncture / Unknown 02/19/2018 3:47 AM CDT 02/19/2018 3:52 AM CDT Narrative [facility] - 02/19/2018 5:00 AM CDT Re-type confirmed per [facility] Blood Bank policies & procedures. Results documented in department. Gino Ramos MD LAB - BLOOD BANK ORD ERABLES Performing Organization Address City/[facility] Co de Phone Number [facility] [address] [place] [address] * PT-INR [facility] (02/19/2018 3:29 AM CDT) PT 14.1 12.1 - 14.8 Seconds 02/19/2018 3:49 AM CDT [facility] INR 1.1 See Comment 02/19/2018 3:49 AM CDT [facility] Comment: The suggested therapeutic range for standard coumadin (warfarin) therapy is an INR of 2.0-3.0. For high-risk patients (Mechanical Mitral Valve Prosthesis, etc.), the suggested prophylactic therapeutic range is an INR of 2.5-3.5. Blood BLOOD SPECIMEN / Unknown Venipuncture / Unknown 02/19/2018 3:29 AM CDT 02/19/2018 3:32 AM CDT Mandy Alonso MD LAB - COAGULATION OR DERABLES Performing Organization Address City/[facility]/ZIP Co de Phone Number [address] [phone] * PREPARE (CROSSMATCH) RBC UNIT(S), 2 Units (02/19/2018 3:29 AM CDT) Only the most recent of2 resultswithin the time period is included. Pathologist [facility] Unit Description LR Red Cells [facility] Unit ABO O [facility] Unit Rh POS [facility] Product Code RL1 [facility] Unit Donor # [id number] [facility] Unit Status transfused [facility] Product Number [id number] [facility] Blood Type Barcode 5100 [facility] Unit Description LR Red Cells [facility] Unit ABO O [facility] Unit Rh POS [facility] Product Code RL1 [facility] Unit Donor # [id number] [facility] Unit Status transfused [facility] Product Number [id number] [facility] Blood Type Barcode 5100 [facility] Blood Bank BLOOD SPECIMEN / Unknown 02/19/2018 3:29 AM CDT 02/19/2018 4:21 AM CDT Stephen Puga MD LAB - BLOOD BAN K ORDERABLES [facility] [address] [place] [address] * TROPONIN I (02/19/2018 3:29 AM CDT) [facility] Troponin I 0.018 <0.032 ng/mL 02/19/2018 4:07 AM CDT [facility] Blood BLOOD SPECIMEN / Unknown Venipuncture / Unknown 02/19/2018 3:29 AM CDT 02/19/2018 3:32 AM CDT Mandy Alonso MD LAB - CHEMISTRY MACO TELLO Performing Organization Address City/[facility]/ZIP Co de Phone Number [address] [phone] * TYPE + SCREEN PANEL (02/19/2018 3:29 AM CDT) [facility] Antibody Screen NEG 8 4:21 AM [facility] ABO Rh O POS 02/19/2018 4:21 AM T [facility] Blood Bank BLOOD SPECIMEN / Unknown Venipuncture / Unknown 02/19/2018 3:29 AM CDT 02/19/2018 3:38 AM CDT Mandy Alonso MD LAB - BLOOD BANK ORD ERABLES [facility] [address] * (ABNORMAL) DIFFERENTIAL MANUAL (02/19/2018 3:29 AM CDT) [facility] WBC (corrected for NRBC) 15.6 10? 3 /uL 02/19/2018 4:25 AM [facility] Total Cell Count 100 02/19/2018 4:25 AM [facility] Neutrophils Absolute Manual 12.48(H) 1.60 - 7.00 10? 3 /uL 02/19/2018 4:25 AM [facility] Comment:(BANDS+SEGS) x WBC = NEUT # (ANC) Lymphocyte Absolute Manual 1.87 0.80 - 2.90 10? 3 /uL 02/19/2018 4:25 AM [facility] Monocytes Absolute Manual 1.25(H) 0.14 - 0.66 10? 3 /uL 02/19/2018 4:25 AM [facility] Neutrophil % Manual 80(H) 30 - 60 % 02/19/2018 4:25 AM [facility] Lymphocyte % Manual 12(L) 20 - 45 % 02/19/2018 4:25 AM [facility] Monocytes % Manual 8 2 - 10 % 02/19/2018 4:25 AM [facility] Platelet Estimate Adequate Adequate 02/19/2018 4:25 AM [facility] RBC Morphology Normal 02/19/2018 4:25 AM [facility] Blood BLOOD SPECIMEN / Unknown Venipuncture / Unknown 02/19/2018 3:29 AM CDT 02/19/2018 3:33 AM CDT Mandy Alonso MD LAB - HEMATOLOGY ORD ERABLES [facility] [address] [place] [address], [facility] [phone] * ALCOHOL ETHYL BLOOD (02/19/2018 3:29 AM CDT) Interpretation Ethanol None Detected None Detected mg/dL 02/19/2018 4:00 AM CDT [facility] Comment: Ethanol levels less than 10 mg/dL are resulted as None detected . Blood BLOOD SPECIMEN / Unknown Venipuncture / Unknown 02/19/2018 3:29 AM CDT 02/19/2018 3:32 AM CDT Mandy Alonso MD LAB - CHEMISTRY ORDE ELISHA Performing Organization Address City/[facility]/[place] [address], [facility] [phone] Care Teams Commercial Loan Manager Relationship Specialty Start Date End Date Mihaela Marie MD [address] [place] [id number] PCP - General Internal Medicine 03/09/18
--- OUTSIDE RECORDS SUMMARY | 2024-07-13 04:36 | XMS_ITS | Clinical Summary ---
Author Organization [facility] Address [address] [place] [address] Care Team Providers Care Press Supervisor Name Role Phone Shamar Grajeda Goyo Unavailable Shamar Grajeda DO Primary Care Provide r Allergies No known active allergies Medications montelukast (SINGULAIR) 10 mg tablet Take 10 mg by mouth daily. 3 7 Active venlafaxine XR (EFFEXOR-XR) 75 mg 24 hr capsule Take 75 mg by mouth daily. 2 7 Active atorvastatin (LIPITOR) 20 mg tablet Take 80 mg by mouth daily. 2 7 Active busPIRone (BUSPAR) 15 mg tabletIndication s:Generalized Anxiety Disorder Take 15 mg by mouth 2 (two) times a day. 2 7 Active triamcinolone (KENALOG) 0.1 % cream Apply 1 application topically as needed. 1 7 Active diphenhydrAMINE (BENADRYL) 50 mg capsule Take 50 mg by mouth 3 (three) times a day. Active albuterol sulfate 90 mcg/actuation aerosol powdr breath activated Inhale 180 mcg every 6 (six) hours. Active budesonide-formo terol (SYMBICORT) 80-4.5 mcg/actuation inhaler Inhale 2 puffs 2 (two) times a day. Rinse mouth with water after use to reduce aftertaste and incidence of candidiasis. Do not swallow. Active clopidogrel (PLAVIX) 75 mg tablet Take 75 mg by mouth daily. Active gabapentin (NEURONTIN) 300 mg capsule Take 300 mg by mouth 3 (three) times a day. Active metoprolol XL (TOPROL-XL) 25 mg 24 hr tablet Take 12.5 mg by mouth daily. Active nitroglycerin (NITROSTAT) 0.[address] 0.3 mg under the tongue every 5 (five) minutes as needed for chest pain. Active rivaroxaban (XARELTO) 20 mg tablet Take 20 mg by mouth daily. Active raNITIdine (ZANTAC) 300 mg tablet TAKE 1 TABLET BY MOUTH EVERY DAY AT BEDTIME 30 tablet 5 9 Active amLODIPine (NORVASC) 2.5 mg tablet Take 1 tablet (2.5 mg total) by mouth daily 90 tablet 0 Active oxyCODONE-acetam inophen (PERCOCET) 10-325 mg per tabletIndication s:Pain Take 1 tablet by mouth every 4 (four) hours as needed for pain Active acetaminophen (TYLENOL) 325 mg tablet Take 650 mg by mouth every 6 (six) hours as needed 8 Active ciclopirox (LOPROX) 0.77 % cream Apply topically 2 (two) times a day 9 Active diazePAM (VALIUM) 5 mg tablet 0 Active ferrous sulfate 325 mg (65 mg of elemental iron) tablet 1 Active fluticasone propionate (FLONASE) 50 mcg/actuation nasal spray Administer 2 sprays into affected nostril(s) daily 8 Active lidocaine (LMX) 4 % cream Apply topically as needed 9 Active loratadine (CLARITIN) 10 mg tablet Take 10 mg by mouth daily 8 Active polyethylene glycol (MIRALAX) 17 gram/dose powder MIX ONE CAPFULL (17GRAMS) IN EIGHT OUNCES OF WATER (ONE CUP) DAILY AND DRINK DIRECTED BY PHYSICIAN 8 Active umeclidinium-riki anteroL (ANORO ELLIPTA) 62.5-25 mcg/actuation blister with device Inhale 1 puff daily 8 Active isosorbide mononitrate ER (IMDUR) 30 mg 24 hr tablet TAKE 1 TABLET (30 MG TOTAL) BY MOUTH DAILY 90 tablet 1 1 Active Active Problems Problem Noted Date Diagnosed Date Coronary artery disease of n ative artery of [place] heart with stable angina pectoris 02/12/2020 Overview (02/12/2020): Added automatically from request for surgery [id number] Chest pain 02/12/2020 Overview (02/12/2020): Added automatically from request for surgery [id number] Leg pain, medial, left 06/02/2017 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, left 06/02/2017 Mood disorder 06/02/2017 Surgical History Surgery Date Site/Laterality Comments SHOULDER SURGERY Left BACK SURGERY CARDIAC STENT PLACEMENT 06/20/2017 - 06/19/2018 CARDIAC CATHETERIZATION Medical History Medical History Date Comments Hypertension Hyperlipidemia COPD (chronic obstructive pulmonary disease) (HC C) Abdominal pain Blood clot in vein COPD (chronic obstructive pulmonary disease) (HC C) Coronary artery disease Clotting disorder (CMS/HCC) (HCC) Social History Tobacco Use Types Packs/Day Years Used Date Smoking Tobacco: Former Cigarettes 0.2 15 0 02/2003 - 02/2018 Smokeless Tobacco: Never Personal Safety Answer Date Recorded Getting School Help Needed Not on file 07/04 Comments No Sex and Gender Information Value Date Recorded Sex Assigned at Not on file Legal Sex Female 11:07 PM NURSE LEADER Gender Identity Not on file Sexual Orientation Not on file Obstetrics History Last Filed Vital Signs Vital Sign Reading Time Taken Comments Blood Pressure 101/56 07/19/2023 2:37 AM NURSE LEADER Pulse 101 07/19/2023 2:37 AM NURSE LEADER Temperature 36.3 ??C (97.3 ??F) 07/19/2023 2:37 AM CS T Respiratory Rate 20 07/19/2023 2:37 AM NURSE LEADER Oxygen Saturation 93% 07/19/2023 2:37 AM NURSE LEADER Inhaled Oxygen Concentration - - Weight 95.3 kg (210 lb) 07/19/2023 2:37 AM NURSE LEADER Height 165.1 cm (5' 5 ) 07/19/2023 2:37 AM NURSE LEADER Body Mass Index 34.95 07/19/2023 2:37 AM NURSE LEADER Plan of Treatment Health Maintenance Due Date Last Done Comments Breast Cancer Screening-Mammogram 1968 Cervical Cancer Screening 1968 Colon Cancer Screening-Colonoscopy 1968 Depression Screening 1968 Hepatitis C Screening 1968 Hepatitis B Screening 1986 Regular Well Visit/Exam 18-64 1986 Pneumococcal vaccine <65 (2 of 2 - PCV) 05/17/2019 05/17/2018 Zoster Vaccine (2 of 2) 06/09/2022 04/14/2022 Influenza Vaccine (#1) 2024 2, 04/03/2020, 04/03/2020, Additional history exists DTaP/Tdap/Td Vaccine (2 - Td or Tdap) 10/28/2027 10/27/2017 Medical Devices Implanted Type Area Regrinder Operator Device Identifier Shelf Expiration Date Model / Serial / Lot Stents Heart Rods Back Insurance [facility] [place] [address] [facility] [place] [address] [facility] MEDIC[facility] IDPA Advance Directives For more information, please contact: [phone] * Full Code (Latest Code Status on File) Date Activated Date Inactivated Comments 03/05/2020 6:56 PM 03/06/2020 1:17 AM * Full Code Date Activated Date Inactivated Comments 03/05/2020 6:56 PM 03/05/2020 6:56 PM * Full Code Date Activated Date Inactivated Comments 10/26/2017 12:49 PM 10/26/2017 4:29 PM * Full Code Date Activated Date Inactivated Comments 06/02/2017 4:07 AM 06/02/2017 5:41 PM * Full Code Date Activated Date Inactivated Comments 06/02/2017 12:16 AM 06/02/2017 4:07 AM Care Teams Press Supervisor Relationship Specialty Start Date End Date Shamar Grajeda DO [address] [place] [id number] PCP - General Family Medicine 07/05/23 Shamar Grajeda DO [address] [place] [id number] Referring Physician Family Medicine 07/07/21
--- OUTSIDE RECORDS SUMMARY | 2024-07-13 04:36 | XMS_ITS | Encounter Summary ---
Author Organization [facility] Address [address] [place] [address]. [place], [place] [id number] [place] [id number] Care Team Providers Care Geodetic Surveyor Technologist Name Role Phone Trae Baez MD Unavailable [phone] Shamar Grajeda DO Primary Care Provider + Encounter Details Date Type Department Care Team (Latest Contact Info) Description 07/11/2024 Travel Social History Tobacco Use Types Packs/Day Years Used Date Smoking Tobacco: Former Cigarettes 3 35 1 983 - 2017 Smokeless Tobacco: Never Comments:05-28-19 also quit v aping in 2019 Alcohol Use Standard Drinks/Week Comments No 0 (1 standard drink = 0.6 oz pur e alcohol) PHQ-2 Answer Date Recorded Patient Health Questionnaire-2 Score 1 07/11/2024 Comments No Sex and Gender Information Value Date Recorded Sex Assigned at Female 07/11/2024 11:40 AM DRAW OFF WORKER Legal Sex Female 4:54 PM CDT Gender Identity Female 07/11/2024 11:40 AM DRAW OFF WORKER Sexual Orientation Not on file Occupation Industry Job Start Date Job End Date Not on file Not on file Not on file Not on file documented as of this encounter Functional Status * RETIRED Are you deaf or do you have serious difficulty hearing Answer Date of Assessment Author Status No 08/25/2017 2:25 PM DRAW OFF WORKER Activ e * RETIRED Are you blind or do you have serious difficulty seeing, even when wearing glasses? Answer Date of Assessment Author Status No 08/25/2017 2:25 PM DRAW OFF WORKER Activ e * Do you have serious [...] Total Score: 0 06/22/19 22 10:15 AM DRAW OFF WORKER documented as of this encounter Care Teams Geodetic Surveyor Technologist Relationship Specialty Start Date End Date Shamar Grajeda DO [address] [place] [id number] PCP - General FAMILY PRACTICE 07/27/18 Trae Baez MD [facility] [address] [place] [address] [place] [facility] Billing Coordinator CARDIOVASCULAR DISEASE 08/19/17 documented as of this encounter
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
--- OUTSIDE RECORDS SUMMARY | 2024-07-13 04:36 | XMS_ITS | Encounter Summary ---
Author Organization [facility] Address [address] [place] [address]. [place], [place] [address] [place] [id number] Care Team Providers Care Director Of Women'S Services Name Role Phone Trae Baez MD Unavailable [phone] Trevon Breaux MD Primary Care Provider [phone] Shamar Grajeda DO Primary Care Provider + Janina King RN Unavailable Kristina Calderón RN Unavailable [phone] Encounter Details Date Type Department Care Team (Late st Contact Info) Description 09/01/2017 Hospital Follow-up Call [facility] [place] [address] Ariadne Reddy RN Social History Tobacco Use Types Packs/Day Years Used Date Smoking Tobacco: Former Cigarettes 3 35 0 08/04/1982 - 08/04/2017 Smokeless Tobacco: Never Alcohol Use Standard Drinks/Week Comments No 0 (1 standard drink = 0.6 oz pur e alcohol) Comments No Sex and Gender Information Value Date Recorded Sex Assigned at Female 07/11/2024 11:40 AM BRASS MOLDER Legal Sex Female 4:54 PM CDT Gender Identity Female 07/11/2024 11:40 AM BRASS MOLDER Sexual Orientation Not on file documented as of this encounter Functional Status * RETIRED Are you deaf or do you have serious difficulty hearing Answer Date of Assessment Author Status No 08/25/2017 2:25 PM BRASS MOLDER Activ e * RETIRED Are you blind or do you have serious difficulty seeing, even when wearing glasses? Answer Date of Assessment Author Status No 08/25/2017 2:25 PM BRASS MOLDER Activ e * Do you have serious [...] Infection Onset Date Last Indicated Resolved Time COVID-19 Rule Out 06/24/2021 06/24/2021 07/01/2021 12:33 AM BRASS MOLDER COVID-19 Rule Out 06/28/2022 06/28/2022 06/28/2022 6:05 PM BRASS MOLDER documented as of this encounter Care Teams Director Of Women'S Services Relationship Specialty Start Date End Date Trevon Breaux MD [address] [place] [address] PCP - General FAMILY PRACTICE 09/18/17 07/26/18 Shamar Grajeda DO [address] [place] [address] [id number] PCP - General FAMILY PRACTICE 07/27/18 Trae Baez MD [facility] [address] [address] [place] Digital Marketing Associate CARDIOVASCULAR DISEASE 08/19/17 Janina King, RN [address] [place] [address] Architectural Engineering Teacher (Ambulatory) REGISTERED NURSE 11/13/21 11/19/21 Kristina Calderón, RN [address] [facility] [address] [place] [address] Registered Nurse CARE MANAGEMENT 12/01/21 04/08/22 documented as of this encounter
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
--- OUTSIDE RECORDS SUMMARY | 2024-07-13 04:36 | XMS_ITS | Encounter Summary ---
Author Organization [facility] Address [address] [place] [address]. [place], [place] [id number] [place] [address] Care Team Providers Care Intelligence Officer Basic Name Role Phone Trae Baez MD Unavailable [phone] Shamar Grajeda DO Primary Care Provider + Reason for Visit * Reason Onset Date Comments Pre-visit Gap Closure 07/11/2024 Encounter Details Date Type Department Care Team (Late st Contact Info) Description 07/11/2024 Patient Outreach [facility] [address] [place] [address] Verona Jean LPN Pre-visit Gap Closure Social History Tobacco Use Types Packs/Day Years Used Date Smoking Tobacco: Former Cigarettes 3 35 1 3 - 2017 Smokeless Tobacco: Never Comments:05-28-19 also quit v aping in 2019 Alcohol Use Standard Drinks/Week Comments No 0 (1 standard drink = 0.6 oz pur e alcohol) PHQ-2 Answer Date Recorded Patient Health Questionnaire-2 Score 1 07/11/2024 Comments No Sex and Gender Information Value Date Recorded Sex Assigned at Female 07/11/2024 11:40 AM ASSOCIATE GENETICS PROFESSOR Legal Sex Female 4:54 PM CDT Gender Identity Female 07/11/2024 11:40 AM ASSOCIATE GENETICS PROFESSOR Sexual Orientation Not on file Occupation Industry Job Start Date Job End Date Not on file Not on file Not on file Not on file documented as of this encounter Functional Status * RETIRED Are you deaf or do you have serious difficulty hearing Answer Date of Assessment Author Status No 08/25/2017 2:25 PM ASSOCIATE GENETICS PROFESSOR Activ e * RETIRED Are you blind or do you have serious difficulty seeing, even when wearing glasses? Answer Date of Assessment Author Status No 08/25/2017 2:25 PM ASSOCIATE GENETICS PROFESSOR Activ e * Do you have serious [...] Sigala RN Active documented in this encounter Progress Notes * Verona Jean LPN - 07/11/2024 9:35 AM CST I am a patient quality advocate calling this patient on behalf of the virtual [employer] work team to assess the below quality gaps. If you need to contact me directly- my number is [phone]. Preventive Screenings: Breast Cancer Screening: Up to Date Notes: Immunizations: Influenza: Patient Declined Notes: CIATE GENETICS PROFESSOR documented in this encounter Plan of Treatment Not on file documented as of this encounter Visit Diagnoses Not on filedocumented in this encounter Additional Health Concerns Assessment Noted Time PHQ-9 Depression Total Score: 0 06/22/19 10:15 AM ASSOCIATE GENETICS PROFESSOR documented as of this encounter Care Teams Intelligence Officer Basic Relationship Specialty Start Date End Date Shamar Grajeda DO [address] [place] [id number] PCP - General FAMILY PRACTICE 07/27/18 Trae Baez MD [facility]. [facility] [address] [place] [address] [place] Electronic Technician CARDIOVASCULAR DISEASE 08/19/17 documented as of this encounter
--- OUTSIDE RECORDS SUMMARY | 2024-07-13 04:36 | XMS_ITS | Referral Summary ---
Author Organization [facility] Address [address] [place] [address] Care Team Providers Care Glassware Verifier Name Role Phone DelroyShamar dillon Goyo Unavailable Shamar Grajeda DO Primary Care [...] artery disease of n ative artery of [place] heart with stable angina pectoris 02/12/2020 Overview (02/12/2020): Added automatically from request for surgery [id number] Chest pain 02/12/2020 Overview (02/12/2020): Added automatically from request for surgery [id number] Leg pain, medial, left 06/02/2017 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, left 06/02/2017 Mood disorder 06/02/2017 Social History Tobacco Use Types Packs/Day Years Used Date Smoking Tobacco: Former Cigarettes 0.2 15 0 02/2003 - 02/2018 Smokeless Tobacco: Never Personal Safety Answer Date Recorded Getting School Help Needed Not on file 07/04 Comments No Sex and Gender Information Value Date Recorded Sex Assigned at Not on file Legal Sex Female 11:07 PM BELL CAPTAIN Gender Identity Not on file Sexual Orientation Not on file Last Filed Vital Signs Vital Sign Reading Time Taken Comments Blood Pressure 101/56 07/19/2023 2:37 AM BELL CAPTAIN Pulse 101 07/19/2023 2:37 AM BELL CAPTAIN Temperature 36.3 ??C (97.3 ??F) 07/19/2023 2:37 AM CS T Respiratory Rate 20 07/19/2023 2:37 AM BELL CAPTAIN Oxygen Saturation 93% 07/19/2023 2:37 AM BELL CAPTAIN Inhaled Oxygen Concentration - - Weight 95.3 kg (210 lb) 07/19/2023 2:37 AM BELL CAPTAIN Height 165.1 cm (5' 5 ) 07/19/2023 2:37 AM BELL CAPTAIN Body Mass Index 34.95 07/19/2023 2:37 AM BELL CAPTAIN Plan of Treatment Not on file Medical Devices Implanted Type Area Fraud Prevention Analyst Device Identifier Shelf Expiration Date Model / Serial / Lot Stents Heart Rods Back Insurance [facility] MEDICAID [facility] [place] [address] [facility] [place] [address] [facility] Advance Directives For more information, please contact: [phone] * Full Code (Latest Code Status on [...] 12:16 AM 06/02/2017 4:07 AM Care Teams Glassware Verifier Relationship Specialty Start Date End Date Shamar Grajeda DO [address] [place] [id number] PCP - General Family Medicine 07/05/23 Shamar Grajeda DO [address] [place] [id number] Referring Physician Family Medicine 07/07/21
--- OUTSIDE RECORDS SUMMARY | 2024-07-13 04:37 | XMS_ITS | Clinical Summary ---
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 Active famotidine (PEPCID) 20 MG Tablet Take by mouth 2 times daily. Active gabapentin (NEURONTIN) 300 MG Capsule Take by mouth 3 times daily. Active ibuprofen (MOTRIN) 600 MG Tablet Take by mouth every 6 hours as needed. Active montelukast (SINGULAIR) 10 MG Tablet Take by mouth daily. Active nitroGLYCERIN (NITROSTAT) 0.3 MG SL Tablet by Sublingual route every 5 minutes as needed. 8 Active rivaroxaban (XARELTO) 20 MG Tablet Take by mouth daily. 8 Active venlafaxine (EFFEXOR) 75 MG Tablet Take by mouth daily. Active diphenhydrAMINE (BENADRYL) 50 MG Capsule Take by mouth as needed. Active prazosin (MINIPRESS) 2 MG Capsule Take by mouth 2 times daily. 7 Active isosorbide mononitrate (IMDUR) 30 MG TABLET SR 24 HR daily. 8 Active raNITIdine (ZANTAC) 300 MG Tablet daily. 8 Active sucralfate (CARAFATE) 1 GM Tablet daily. 8 Active terbinafine (LAMISIL) 250 MG Tablet daily. 8 Active traZODone (DESYREL) 50 MG Tablet nightly. 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 09/08/2017 Family History Medical History Relation Name Comments Heart Attack Brother Heart Disease Brother Hypertension Brother Stroke Brother Clotting Disorder Father Diabetes Father Heart Disease Father Hypertension Father Cancer Mother Heart Attack Paternal Aunt Cancer Paternal Uncle Heart Attack Paternal Uncle Relation Name Status Comments Brother Father Mother Paternal Aunt Paternal Uncle Social History Tobacco Use Types Packs/Day Years Used Date Smoking Tobacco: Every Day Cigarettes 1 41.8 Started: 09/08/1982 E-Vapor with Nicotine Smokeless Tobacco: Never Alcohol Use Standard Drinks/Week Comments No 0 (1 standard drink = 0.6 oz pur e alcohol) PHQ-2 Answer Date Recorded PHQ-2 Score 19 03/03/2019 Comments No Sex and Gender Information Value Date Recorded Sex Assigned at Not on file Legal Sex Female 7:54 PM CDT Gender Identity Not on file Sexual Orientation Not on file Last Filed Vital Signs Vital Sign Reading Time Taken Comments Blood Pressure 114/78 07/13/2018 1:17 PM [employer] Pulse 78 07/13/2018 1:17 PM [employer] Temperature 36.5 ??C (97.7 ??F) 07/13/2018 1:17 PM CS T Respiratory Rate 18 07/13/2018 1:17 PM [employer] Oxygen Saturation 96% 07/13/2018 1:17 PM [employer] Inhaled Oxygen Concentration - - Weight 80.3 kg (177 lb) 07/13/2018 1:17 PM [employer] Height 160 cm (5' 3 ) 07/13/2018 1:17 PM [employer] Body Mass Index 31.35 07/13/2018 1:17 PM [employer] Plan of Treatment Health Maintenance Due Date Last Done Comments Hepatitis C Virus (HCV) Screening 1968 TdaP Immunization 1968 Hepatitis B Immunization (1 of 3 - 19+ 3-dose series) 1987 Pap Smear 1989 Cervical Cancer Screening (CCS) 1998 HPV/Cotest 1998 Colonoscopy 2013 Colorectal Cancer Screening 2013 Cologuard 2018 Immunochemical Fecal Occult Blood 2018 Mammogram 2018 Pneumococcal Immunization (5 0+ years) (1 of 1 - PCV) 2018 Zoster Immunization (1 of 2) 2018 Influenza Immunization (#1) 2024 04/12/2017 SARS-COV-2 Immunization (3 - season) 2024 09/27/2020, 08/26/2020 Respiratory Syncytial Virus (RSV) Immunization (Adult) (1 - 1-dose 75+ series) 2043 Meningococcal Immunization (ACWY) Aged Out No longer eligible b ased on patient's age to complete this topic Rotavirus Immunization Aged Out No lo nger eligible based on patient's age to complete this topic Insurance MEDICAID [place] MEDICAID [employer] Care Teams Certified Green Building Engineer Relationship Specialty Start Date End Date Provider, None [place] PCP - General 02/08/17
== END 2024-07-12 11:33 | disposition home or self-care (01) ==
PROVIDERS: Anesthesiology; PCP Student in an Organized Health Care Education/Training Program; Visit Provider Orthopaedic Surgery
DX: R94.31 Abnormal electrocardiogram [ECG] [EKG] (principal); D64.9 Anemia, unspecified; I10 Essential (primary) hypertension; Z79.899 Other long term (current) drug therapy
CPT/HCPCS: 36415; 80048; 85014; 85018; 93005

== ENCOUNTER 2025-02-14 10:39 | Outpatient (CLI) | payer MEDICARE, SELFPAY ==
--- NOTE | ~2025-02-14 | CT_ITS ---
EXAMINATION: CT lung screening DATE: 02/14/2025 10:55 INDICATION: Nicotine dependence TECHNIQUE: Computed tomography (CT) of the chest was performed without intravenous contrast. The dose-length product was 93.86 mGy-cm. Automated exposure control and iterative reconstruction technique were employed. COMPARISON: CT dated 08/04/2017 FINDINGS: There is emphysema. No endobronchial lesions. Few scattered areas of groundglass opacity are present, nonspecific. No significant pleural or pericardial effusion. There are liver cysts. No acute osseous abnormality. IMPRESSION: 1. Lung-RADS category 1: Negative. Continue annual screening with noncontrast low-dose chest CT in 12 months. 2: Sparse patchy areas of groundglass opacification, nonspecific. Consider hypersensitivity pneumonitis and infection in the appropriate clinical setting. Reviewed, dictated and finalized at location O. IMPRESSION: 1. Lung-RADS category 1: Negative. Continue annual screening with noncontrast l ow-dose chest CT in 12 months. 2: Sparse patchy areas of groundglass opacification, nonspecific. Consider hype rsensitivity pneumonitis and infection in the appropriate clinical setting.
== END 2025-02-14 10:40 | disposition home or self-care (01) ==
LOC: MICIMG 10:41
PROVIDERS: PCP Student in an Organized Health Care Education/Training Program; Visit Provider Student in an Organized Health Care Education/Training Program
DX: Z12.2 Encounter for screening for malignant neoplasm of respiratory organs (principal); Z87.891 Personal history of nicotine dependence; R91.8 Other nonspecific abnormal finding of lung field
CPT/HCPCS: 71271